=== PATIENT | female | born 1955 | race African-American/Black ===

== ENCOUNTER 2016-11-24 10:05 | Emergency (ER) | payer OTHER ==
[2016-11-24] MEDS ORDERED: ZOFRAN IV ONE (10:25)
--- NOTE | 2016-11-24 10:31 | PROVIDER DOCUMENTATION ---
HPI-General Adult - General Chief Complaint: Dizziness Stated Complaint: DIZZY /LEG PAIN Time Seen by Provider: 11/24/16 10:14 Source: patient Allergies/Adverse Reactions: Patient Allergies Allergy/AdvReac Type Severity Reaction Status Date / Time ciprofloxacin [From Cipro] Allergy Intermediate speech Verified 11/24/16 11:12 problem ciprofloxacin HCl * Allergy Intermediate speech Verified 11/24/16 11:12 [From Cipro] problem gabapentin Allergy Intermediate speech Verified 11/24/16 11:12 problem cephalexin monohydrate * AdvReac Unknown Verified 11/24/16 11:12 [From Keflex] escitalopram oxalate * AdvReac Unknown Verified 11/24/16 11:12 [From Lexapro] Penicillins AdvReac SWELLING Verified 11/24/16 11:12 promethazine HCl * AdvReac Unknown Verified 11/24/16 11:12 [From Phenergan] Home Medications: Divalproex Sodium 250 tab PO HS 05/31/14 Multivitamin [Multivitamins] 1 tab PO QAM 05/31/14 Labetalol HCl 300 mg PO BID 04/16/15 Mirtazapine [Remeron] 30 mg PO QHS 04/16/15 Insulin Aspart [Novolog Flexpen] 2 - 4 unit SQ DIRECTED 04/21/15 PRAVAstatin [Pravachol] 40 mg PO QHS 12/28/15 Calcium Acetate 667 mg PO DAILY 06/04/16 Dicyclomine [Bentyl] 10 mg PO AC + HS 06/04/16 Amitriptyline [Elavil] 50 mg PO HS 07/14/16 Divalproex [Depakote] 125 mg PO QHS 07/14/16 Furosemide [Lasix] 20 mg PO DAILY 07/14/16 Hydrocodone Bit/Acetaminophen [Hydrocodon-Acetaminoph 7.5-325] 1 each PO Q12H PRN PRN 07/14/16 Levetiracetam [Keppra] 500 mg PO TID 07/14/16 Metoprolol [Lopressor] 25 mg PO DAILY 07/14/16 - History of Present Illness -Gen Adult Nature of Presenting Problems: 61 yo BF with DM, chronic pain on dialysis has severe leg pain last night after 3 hours of dialysis. She felt dizzy and nauseated. This morning the room was spinning around and she was also nauseated. She took a zofran and her vomiting stopped but dizziness continues. Denies fall or trauma Location of Pain/Injury: reports: lower body Pain Radiation: reports: no radiation Quality of Pain: reports: aching, burning Severity: reports: moderate, severe Onset/Duration: reports: last night Timing: reports: improving Context/Activities at Onset: reports: none Modifying Factors: improves with: nothing Associated Symptoms: reports: nausea, vomiting Similar Symptoms Previously?: No Recently seen or treated by another doctor?: Yes (dialysis yesterday) - Diabetes Related Context Context: denies: low blood sugar, high blood sugar - Sickle Cell Pain Related Context Is this pain typical of prior episodes of crisis?: No Review of Systems - Adult - REVIEW OF SYSTEMS - ADULT Constitutional: reports: no symptoms reported Eyes: reports: no symptoms reported. denies: decreased vision, blurred vision, double vision Ears, Nose, Mouth & Throat: reports: no symptoms reported. denies: ear discharge, ear pain, hearing loss, tinnitus, sinus problem Cardiovascular: reports: no symptoms reported Respiratory: reports: no symptoms reported Gastrointestinal: reports: see HPI, nausea. denies: vomiting Genitourinary: reports: no symptoms reported Musculoskeletal: reports: no symptoms reported Integumentary: reports: no symptoms reported Neurological: reports: dizziness/vertigo, loss of balance. denies: numbness, slurred speech Psychiatric: reports: no symptoms reported Endocrine: reports: no symptoms reported Hematologic/Lymphatic: reports: no symptoms reported Allergic/Immunologic: reports: no symptoms reported All Other Systems: Reviewed and Negative Past History - Adult - PAST MEDICAL HISTORY-ADULT Review of Records: reports: Old Records Reviewed, Nursing Assessment Review, Medications Reviewed, Social history reviewed & non-contributory. Major Childhood Illnesses: reports: denies history Cardiovascular: reports: HTN Respiratory: reports: sleep apnea Gastrointestinal: reports: GERD, ulcer Obstetrical/Gynecological: reports: denies history Genitourinary: reports: dialysis (M, W, Sat), ESRD Musculoskeletal: reports: denies history Neurological: reports: CVA (left sided deficit), Seizures/Epilepsy, TIA Psychiatric: reports: denies history Endocrine/Immune: reports: anemia, Diabetes Other Conditions: reports: denies history - PRIOR SURGERIES/PROCEDURES Surgical/Procedure History: reports: hysterectomy, back/neck, other (left hip replacement) - PRIOR HOSPITALIZATIONS Prior Hospitalizations: reports: none - IMMUNIZATION STATUS Childhood Immunizations: UTD, See Nurse Assessment Flu Vaccine: See Nurse Assessment - FAMILY HISTORY Family History: reviewed, not pertinent - SOCIAL HISTORY Substance Use: opiates Alcohol Use Frequency: never Living Situation: family Physical Exam-General - PHYSICAL EXAM-ADULT Initial Vital Signs Reviewed: Yes - CONSTITUTIONAL General Appearance: mild distress - EYES Eyes: PERRL/EOMI, pink conjunctivae - HEAD, EARS, NOSE, MOUTH & THROAT HENMT: normocephalic/atraumatic, moist mucous membranes, dental decay, other ( left cerumen impaction) - NECK Neck: non-tender, full range of motion, supple - RESPIRATORY Respiratory: lungs clear, normal breath sounds - CARDIOVASCULAR Cardiovascular: normal peripheral pulses, regular rate, rhythm. negative: tachycardia - GASTROINTESTINAL (ABDOMEN) Abdominal Exam: normal bowel sounds, tenderness (mild diffuse, no rebound) - MUSCULOSKELETAL Back Exam: no CVA tenderness Extremity: no pedal edema. negative: pulse deficit - SKIN Integumentary: normal color, normal turgor - NEUROLOGIC Neurologic: grossly normal, no motor/sensory deficits, other (questionable nystagmus, gaze looks slightly disconjugate but maybe mild baseline exotropia) Departure - Departure Time of Disposition Order: 13:50 DIAGNOSIS: Dizziness, ESRD (end stage renal disease) on dialysis, Diabetes Leg pain Qualifiers: Laterality: bilateral Qualified Code(s): M79.604 - Pain in right leg; M79.605 - Pain in left leg Disposition: HOME 01 Certified Medical Emergency: Urgent Condition: Good Additional Instructions: follow up with dr. guerin for better look into leg pain Prescriptions: Hydrocodone/Acetaminophen [[place] 10-325 Tablet] 1 each PO Q4-6H PRN PRN #10 tablet PRN Reason: Pain Referrals: Sean Guerin MD [Primary Care Provider] -
[2016-11-24] MEDS ORDERED: CATAPRES PO ONE (10:33)
[2016-11-24 10:49] LABS: MANUAL DIFF NEEDED? NO
[2016-11-24 10:51] LABS: BASO% 0.2 % (0.0-0.8); EOS# 0.05 X1000 (0.0-0.7); EOS% 0.8 % (0.0-10.0); HEMATOCRIT 32.1 % (37.0-47.0); HEMOGLOBIN 10.2 g/dL (12.0-16.0); LYMPH# 1.43 X1000 (1.2-3.4); LYMPH% 22.5 % (20.5-51.1); MCH 30.8 PG (27-31); MCHC 31.8 g/dL (33-37); MONO% 6.3 % (1.7-9.3); MPV 10.4 FL (7.4-10.4); NEUT% 70.2 % (42.2-75.2); PLT 205 X1000 (130-400); RBC 3.31 XMIL (4.2-5.4)
[2016-11-24 11:05] LABS: ALBUMIN 4.3 g/dL (3.5-5.0); CALCIUM 10.5 mg/dL (8.8-10.2); POTASSIUM 4.3 mmol/L (3.5-5.1); TOTAL BILIRUBIN 0.43 mg/dL (0.20-1.00); TOTAL PROTEIN 7.3 g/dL (6.3-8.3)
[2016-11-24] MEDS ORDERED: MORPHINE IV ONE (11:25)
--- NOTE | 2016-11-24 11:51 | Diag Imaging Result Document ---
PROCEDURE NAME: HEAD W/O CONTRAST - 11/24/2016 CT HEAD WITHOUT CONTRAST: COMPARISON: 10/01/2016. FINDINGS: There is no discrete intracranial mass, mass effect, or intracranial hemorrhage. There is no evidence of hydrocephalus. There is no evidence of acute infarct given the limited sensitivity of CT versus MRI. The surrounding soft tissues and bony structures are essentially unremarkable. IMPRESSION: No evidence of acute intracranial pathology.
[2016-11-24 14:16] VITALS: BP 189/86
== END 2016-11-24 14:15 | disposition home or self-care (01) ==
LOC: ED 10:05
DX: R42 Dizziness and giddiness (principal); I12.0 Hypertensive chronic kidney disease with stage 5 chronic kidney disease or end stage renal disease; N18.6 End stage renal disease; E11.9 Type 2 diabetes mellitus without complications; M79.605 Pain in left leg; M79.604 Pain in right leg; R11.2 Nausea with vomiting, unspecified; K02.9 Dental caries, unspecified; R10.819 Abdominal tenderness, unspecified site; R56.9 Unspecified convulsions; Z79.4 Long term (current) use of insulin; Z79.899 Other long term (current) drug therapy; Z86.73 Personal history of transient ischemic attack (TIA), and cerebral infarction without residual deficits; Z99.2 Dependence on renal dialysis; Z96.642 Presence of left artificial hip joint; H61.22 Impacted cerumen, left ear
CPT/HCPCS: 70450; 80053; 85025; 96374; 96375; J2270; J2405

== ENCOUNTER 2017-01-16 18:42 | Emergency (ER) | payer OTHER ==
[2017-01-16 19:57] LABS: MANUAL DIFF NEEDED? NO
[2017-01-16 20:00] LABS: BASO% 0.1 % (0.0-0.8); EOS# 0.08 X1000 (0.0-0.7); EOS% 1.1 % (0.0-10.0); HEMATOCRIT 33.2 % (37.0-47.0); HEMOGLOBIN 10.6 g/dL (12.0-16.0); LYMPH% 19.9 % (20.5-51.1); MCH 30.5 PG (27-31); MCHC 31.9 g/dL (33-37); MCV 95.7 FL (81-99); MONO# 0.63 X1000 (0.11-0.59); MPV 10.2 FL (7.4-10.4); NEUT% 69.9 % (42.2-75.2); PLT 224 X1000 (130-400); RBC 3.47 XMIL (4.2-5.4)
[2017-01-16] MEDS ORDERED: COMPAZINE IV ONE (20:23)
[2017-01-16] MEDS ORDERED: MORPHINE IV ONE (20:24)
[2017-01-16 20:29] LABS: ALBUMIN 3.9 g/dL (3.5-5.0); CALCIUM 9.7 mg/dL (8.8-10.2); POTASSIUM 3.3 mmol/L (3.5-5.1); TOTAL BILIRUBIN 0.27 mg/dL (0.20-1.00)
--- NOTE | 2017-01-16 21:08 | PROVIDER DOCUMENTATION ---
HPI-Headache - General Source: patient - History of Present Illness-Headache Headache Location: reports: occipital Quality of Pain: reports: aching Severity: reports: mild Onset/Duration: reports: other (2 weeks) Timing: reports: still present Headache Exacerbated by:: reports: nothing Modifying Factors: improves with: nothing Associated Symptoms: reports: headache, nausea Similar Symptoms Previously?: No Recently seen or treated by another doctor?: No <Jeni Dalton - Last Filed: 01/16/17 21:36> <Osiel French - Last Filed: 01/16/17 21:37> - General Chief Complaint: General Adult Stated Complaint: BACK/ MCQUEEN, LOW BP Time Seen by Provider: 01/16/17 19:36 Allergies/Adverse Reactions: Patient Allergies Allergy/AdvReac Type Severity Reaction Status Date / Time cephalexin monohydrate * Allergy Unknown Unknown Verified 01/16/17 20:16 [From Keflex] escitalopram oxalate * Allergy Unknown Unknown Verified 01/16/17 20:16 [From Lexapro] ciprofloxacin [From Cipro] AdvReac Intermediate hallucinati Verified 01/16/17 20 :16 ons ciprofloxacin HCl * AdvReac Intermediate hallucinati Verified 01/16/17 20:16 [From Cipro] ons gabapentin AdvReac Intermediate hallucinati Verified 01/16/17 20:16 ons Penicillins AdvReac Intermediate hallucinati Verified 01/16/17 20:16 ons promethazine HCl * AdvReac Intermediate NAUSEA/VOMI Verified 01/16/17 20:16 [From Phenergan] TING Home Medications: Home Medication List Medication Instructions Recorded Confirmed Last Taken Type Divalproex Sodium 250 tab PO HS 05/31/14 11/24/16 11/23/16 History Multivitamin [Multivitamins] 1 tab PO QAM 05/31/14 11/24/16 11/23/16 History Labetalol HCl 300 mg PO BID 04/16/15 11/24/16 11/23/16 History Mirtazapine [Remeron] 30 mg PO QHS 04/16/15 11/24/16 11/23/16 History Insulin Aspart [Novolog Flexpen] 2 - 4 unit SQ DIRECTED 04/21/15 11/24/1605/04 History PRAVAstatin [Pravachol] 40 mg PO QHS 12/28/15 11/24/16 11/23/16 History Calcium Acetate 667 mg PO DAILY 06/04/16 11/24/16 11/23/16 History Dicyclomine [Bentyl] 10 mg PO AC + HS 06/04/16 11/24/16 11/23/16 History Nitroglycerin Sl [Nitroglycerin] 0.4 mg SL Q5M PRN PRN #0 tablet 06/26/1611/23/16 Rx Amitriptyline [Elavil] 50 mg PO HS 07/14/16 11/24/16 11/23/16 History Divalproex [Depakote] 125 mg PO QHS 07/14/16 11/24/16 11/23/16 History Furosemide [Lasix] 20 mg PO DAILY 07/14/16 11/24/16 11/23/16 History Hydrocodone Bit/Acetaminophen 1 each PO Q12H PRN PRN 07/14/16 11/24/16 11/23/16 History [Hydrocodon-Acetaminoph 7.5-325] Levetiracetam [Keppra] 500 mg PO TID 07/14/16 11/24/16 11/23/16 History Metoprolol [Lopressor] 25 mg PO DAILY 07/14/16 11/24/16 11/23/16 History Hydrocodone/Acetaminophen [[place] 1 each PO Q4-6H PRN PRN #10 tablet 11/24/16 Unknown Rx 10-325 Tablet] - History of Present Illness-Headache Nature of Presenting Problem: 61 year old F presents to the ED with a cc of a posterior headache radiating to the frontal region x2 weeks. Pt states that her blood pressure has also been elevated. Pt was started on Losartain and HCTZ. PT states this morning around 0200 systolic pressure was 114. PT states that she was not feeling well. PT states that today while at dialysis her blood pressure was running low with a pressure of 150s systolic. (Jeni Dalton) Review of Systems - Adult - REVIEW OF SYSTEMS - ADULT Constitutional: denies: chills, fever Eyes: reports: no symptoms reported Ears, Nose, Mouth & Throat: reports: no symptoms reported Cardiovascular: denies: chest pain, palpitations Respiratory: denies: cough, shortness of breath Gastrointestinal: reports: nausea. denies: abdominal pain, diarrhea, rectal bleeding Genitourinary: reports: no symptoms reported Musculoskeletal: reports: back pain. denies: neck pain Integumentary: reports: no symptoms reported Neurological: reports: headache/migraines. denies: dizziness/vertigo Psychiatric: reports: no symptoms reported Endocrine: reports: no symptoms reported Hematologic/Lymphatic: reports: no symptoms reported Allergic/Immunologic: reports: no symptoms reported All Other Systems: Reviewed and Negative <Jeni Dalton - Last Filed: 01/16/17 21:36> Past History - Adult - PAST MEDICAL HISTORY-ADULT Review of Records: reports: Nursing Assessment Review, Medications Reviewed Major Childhood Illnesses: reports: denies history Cardiovascular: reports: HTN Respiratory: reports: sleep apnea Gastrointestinal: reports: GERD, ulcer Obstetrical/Gynecological: reports: denies history Genitourinary: reports: dialysis (M, W, FRi), ESRD Musculoskeletal: reports: denies history Neurological: reports: CVA (left sided deficit), Seizures/Epilepsy, TIA Psychiatric: reports: denies history Endocrine/Immune: reports: anemia, Diabetes Other Conditions: reports: denies history - PRIOR SURGERIES/PROCEDURES Surgical/Procedure History: reports: hysterectomy, back/neck, other (left hip replacement) - PRIOR HOSPITALIZATIONS Prior Hospitalizations: reports: none - IMMUNIZATION STATUS Childhood Immunizations: UTD, See Nurse Assessment Flu Vaccine: See Nurse Assessment - FAMILY HISTORY Family History: reviewed, not pertinent - SOCIAL HISTORY Smoking: non-smoker Substance Use: none/never Alcohol Use Frequency: never <Jeni Dalton - Last Filed: 01/16/17 21:36> Physical Exam- Neurological - Physical Exam-Neuro Initial Vital Signs Reviewed: Yes General Appearance: appears well, alert, no apparent distress Respiratory: chest non-tender, lungs clear, normal breath sounds Cardiovascular: normal peripheral pulses, regular rate, rhythm, no edema Abdominal Exam: normal bowel sounds, non tender, soft Extremity: normal inspection analytical engineer Exam: normal hearing, normal speech, PERRL Neurologic: analytical engineer II-XII nml as tested, no motor/sensory deficits Integumentary: normal color, normal turgor, warm/dry Psych/Mental Status: normal mood/affect, normal thought content, normal thought process, oriented x 3 <Jeni Dalton - Last Filed: 01/16/17 21:36> Progress - REASSESSMENT Reassessment #1 Time Reassessed: 21:33 (PT feeling much better after pain medications. PT states also that she just recently developed symptoms of a vaginal yeast infection. PT states that she developes these after taking antibiotics in which she just finished a round of antibiotics. Pts yeast infection will be treated. Pt will be d/c home. ) <Jeni Dalton - Last Filed: 01/16/17 21:36> <Osiel French - Last Filed: 01/16/17 21:37> - PLAN OF CARE/RESULTS Progress/Plan/Lab Results: plan of care: imaging, labs, medications Orders Category Date Time Status HEAD W/O CONTRAST [CT] Stat Exams 01/16/17 20:24 Taken CBC WITH ELECTRONIC DIFF [HEME] Stat Lab 01/16/17 19:50 Completed CMP [COMPREHENSIVE METABOLIC PANEL] [CHEM] Stat Lab 01/16/17 19:50 Completed Fluconazole [Diflucan] Med 01/16/17 21:33 Discontinued 150 mg PO NOW ONE Morphine Med 01/16/17 20:24 Discontinued 4 mg IV NOW ONE Prochlorperazine [Compazine] Med 01/16/17 20:23 Discontinued 10 mg IV NOW ONE Laboratory Tests 01/16/17 01/16/17 19:50 19:50 WBC 7.03 RBC 3.47 L Hgb 10.6 L Hct 33.2 L MCV 95.7 MCH 30.5 MCHC 31.9 L RDW Std Deviation 14.4 Plt Count 224 MPV 10.2 Immature Gran % (Auto) 0.0 Neut % (Auto) 69.9 Lymph % (Auto) 19.9 L [place] % (Auto) 9.0 Eos % (Auto) 1.1 Baso % (Auto) 0.1 Immature Gran # (Auto) 0.00 Neut # (Auto) 4.91 Lymph # (Auto) 1.40 [place] # (Auto) 0.63 H Eos # (Auto) 0.08 Baso # (Auto) 0.01 Sodium 137 Potassium 3.3 L Chloride 97 L Carbon Dioxide 25 Anion Gap 15 BUN 18 Creatinine 4.6 H Estimated GFR/1.73 m2 12 BUN/Creatinine Ratio 4 Glucose 178 H Calculated Osmolality 280 Calcium 9.7 Total Bilirubin 0.27 AST 11 ALT 11 Alkaline Phosphatase 135 H Total Protein 7.0 Albumin 3.9 Globulin 3.1 Albumin/Globulin Ratio 1.3 Vital Signs - 24 hr 01/16/17 18:58 Temperature 98.7 F Pulse Rate 82 Respiratory 16 Rate Blood Pressure 161/67 O2 Sat by Pulse 100 Oximetry Pt given results and will be d/c home w/o rx to follow up with PCP. Pt verbally understood instructions. PT remained clinically stable throughout the course of the ED stay and will return if symptoms worsen. (Jeni Dalton) Departure <Jeni Dalton - Last Filed: 01/16/17 21:36> - Departure Time of Disposition Order: 21:36 Certified Medical Emergency: Emergent <Osiel French - Last Filed: 01/16/17 21:37> - Departure DIAGNOSIS: Vaginal yeast infection Headache Qualifiers: Headache type: unspecified Headache chronicity pattern: acute headache Intractability: not intractable Qualified Code(s): R51 - Headache Chronic lower back pain Qualifiers: Back pain laterality: midline Sciatica presence: without sciatica Qualified Code(s): M54.5 - Low back pain; G89.29 - Other chronic pain Disposition: HOME 01 Condition: Good Additional Instructions: ED Follow Up Instructions: You have been treated by a care provider in the Emergency Department. These instructions are being provided to you so you can have an understanding of how to care for yourself upon discharge. Upon discharge from the Emergency Department, you are responsible for making arrangements for follow-up care by a physician of your choice. Take all prescribed medications as directed. Return to the Emergency Department immediately for any new or worsening symptoms. You may call the Physician Referral phone number at [phone] to obtain a list of Physicians who are taking new patients. Referrals: Sean Guerin MD [Primary Care Provider] - Instructions: Dehydration, Adult, [id number], Migraine Headache, [id number] Attestation - Scribe Verification/Attestation Scribe:: Jeni Dalton Acting as Scribe for:: Osiel French Scribe documention review:: This chart was documented by a scribe and accurately reflects the service the provider performed and the decisions made by the provider. <Jeni Dalton - Last Filed: 01/16/17 21:36> Physician Attestation - Physician Attestation I, the provider, attest to the following statement:: Osiel French Physician documentation Attestation:: This documentation recorded by the scribe accurately reflects the service I personally performed and the decisions made by me. <Jeni Dalton - Last Filed: 01/16/17 21:36> HPI-Musculoskeletal Pain/Inj - GENERAL Source: patient - HX OF PRESENT ILLNESS-MUSKULOSKELTAL Quality of Pain: reports: aching Severity in ED: mild Onset/Duration: 1 week ago Timing: still present Modifying Factors: improves with: nothing Any recent injury?: No Similar Symptoms Previously?: No Recently seen or treated by another doctor?: No - BACK & NECK PAIN/INJURY Back/Neck Pain Location: reports: lumbar spine Associated Symptoms: reports: lower back pain History of Chronic Neck or Back Pain?: Yes <Jeni Dalton - Last Filed: 01/16/17 21:36> <Osiel French - Last Filed: 01/16/17 21:37> - GENERAL Chief Complaint: General Adult Stated Complaint: BACK/ MCQUEEN, LOW BP Time Seen by Provider: 01/16/17 19:36 - HX OF PRESENT ILLNESS-MUSKULOSKELTAL Nature of Presenting Problem: PT also c/o lower back pain x1 week. Pt states that she has a hx of chronic lower back pain but states it was worsened due to having a test ran last week where she had to lay on her back. PT states that her regular pain medications are not helping. (Jeni Dalton)
[2017-01-16] MEDS ORDERED: DIFLUCAN PO ONE (21:33)
[2017-01-16 21:50] VITALS: BP 166/76
--- NOTE | 2017-01-17 06:47 | Diag Imaging Result Document ---
PROCEDURE NAME: HEAD W/O CONTRAST - 01/16/2017 CT BRAIN WITHOUT CONTRAST: TECHNIQUE: Dose-reduction protocol. COMPARISON: Compared to 11/24/2016. FINDINGS: No parenchymal hemorrhage. No epidural or subdural hematoma. No subarachnoid hemorrhage. No mass identified on this noncontrasted exam. There are only mild microvascular ischemic changes. No hydrocephalus. No sinus opacification. IMPRESSION: 1. No hemorrhage. 2. Minimal microvascular ischemic changes similar to the prior study. A preliminary report was given at 8:53 p.m.
== END 2017-01-16 21:49 | disposition home or self-care (01) ==
LOC: ED 18:42
DX: R51 Headache (principal); B37.3 Candidiasis of vulva and vagina; G89.29 Other chronic pain; M54.5 Low back pain; R11.0 Nausea; I12.0 Hypertensive chronic kidney disease with stage 5 chronic kidney disease or end stage renal disease; N18.6 End stage renal disease; Z99.2 Dependence on renal dialysis; Z79.899 Other long term (current) drug therapy; R56.9 Unspecified convulsions; E11.9 Type 2 diabetes mellitus without complications; I69.398 Other sequelae of cerebral infarction; Z79.4 Long term (current) use of insulin; Z96.642 Presence of left artificial hip joint
CPT/HCPCS: 70450; 80053; 85025; J0780; J2270

== ENCOUNTER 2017-08-06 10:56 | Observation (INO) ==
--- NOTE | 2017-07-30 11:04 | EKG Report ---
Test Performed on : 07/30/2017 10:47:02 AM Test Reason : PAT Blood Pressure : / mmHG Vent. Rate : 061 BPM Atrial Rate : 061 BPM P-R Int : 186 ms QRS Dur : 106 ms QT Int : 468 ms P-R-T Axes : 056 055 049 degrees QTc Int : 471 ms Normal sinus rhythm. Possible Left atrial enlargement Left ventricular hypertrophy Abnormal ECG When compared with ECG of 30-JUN-2017 20:28, No significant change was found Confirmed by Bret Dejesus MD ([id number]) on 07/30/2017 7:04:17 PM
[2017-07-30 11:24] LABS: CALCIUM 10.2 mg/dL (8.8-10.2); POTASSIUM 4.4 mmol/L (3.5-5.1)
[2017-08-06] MEDS ORDERED: 1/2 NS 500 ML ONE (11:14)
[2017-08-06] MEDS ORDERED: XYLOCAINE-MPF 2% ONE (12:16)
[2017-08-06] MEDS ORDERED: VERSED ONE (12:16)
[2017-08-06] MEDS ORDERED: ZEMURON ONE ×2 (12:16→12:17)
[2017-08-06] MEDS ORDERED: DIPRIVAN 1% ONE (12:17)
[2017-08-06] MEDS ORDERED: QUELICIN (DOSE) ONE (12:17)
[2017-08-06] MEDS ORDERED: FENTANYL ONE (12:17)
[2017-08-06] MEDS ORDERED: SENSORCAINE 0.5%-EPI 1:200,000 ONE (12:24)
[2017-08-06 12:48] LABS: CALCIUM 9.9 mg/dL (8.8-10.2)
[2017-08-06] MEDS ORDERED: ZOFRAN ONE (13:04)
[2017-08-06] MEDS ORDERED: DECADRON ONE ×2 (13:04→14:08)
[2017-08-06] MEDS ORDERED: APRESOLINE ONE ×2 (13:05→14:35)
[2017-08-06] MEDS ORDERED: NEOSTIGMINE ONE (14:05)
[2017-08-06] MEDS ORDERED: ROBINUL ONE (14:06)
[2017-08-06] MEDS: DILAUDID ONE ×3 (15:01→15:15)
[2017-08-06] MEDS ORDERED: BUPRENEX IV PRN (16:03)
[2017-08-06] MEDS ORDERED: SEVELAMER CARBONATE 800 MG PO PRN (16:03)
[2017-08-06] MEDS ORDERED: ZOFRAN IV PRN (16:03)
[2017-08-06] MEDS ORDERED: CATAPRES PO PRN (16:03)
--- NOTE | 2017-08-06 16:10 | OPERATIVE NOTE ---
PROCEDURE DATE: 08/06/2017 PROCEDURE: Parathyroidectomy (3 gland resection, right inferior, right superior, left superior). SURGEON: Tee Reynaga MD. HYDRAULIC SPECIALIST: Jayden Sarabia RN. PREOPERATIVE DIAGNOSIS: 1. Secondary hyperparathyroidism. 2. End-stage renal disease. POSTOPERATIVE DIAGNOSIS: 1. Secondary hyperparathyroidism. 2. End-stage renal disease. INDICATIONS: This lady had a parathyroid hormone level in the 1300 range. This was not able to be controlled medically. FINDINGS: The right inferior gland was the largest gland, measuring 2 x 2 x 1 cm. The 2 superior glands were mildly enlarged but not as big as the right inferior gland. The left inferior gland probably was normal appearing, so I did not disturb the left inferior gland. DESCRIPTION OF PROCEDURE: Satisfactory general endotracheal anesthesia achieved, the neck was gently extended. The anterior neck was prepped and draped in a sterile fashion. We marked the midline of the sternal notch and then 5 cm on each side a vertical pina was made. We then used 2- 0 silk to lay across the skin to make an imprint about the level of the lowest skin line. We then marked the lowest skin line and used 0.5 Marcaine with epinephrine for local anesthesia. Then I made a collar incision. We carried our incision through the platysma. Throughout the extent of the incision, we then raised the subplatysmal plane superiorly to the sternal notch. Also a subplatysmal plane inferiorly to the sternal notch. Gelpi retractors were placed on each side. We incised the cervical fascia in the midline. Some clips were noted on the right consistent with a previous cervical disk surgery. There was a prominent thyroid nodule at the isthmus. We dissected the strap muscles off of it. In fact, we amputated the thyroid nodule. We looked on the right side first, we retracted the strap muscles. We then dissected beside the right thyroid gland. We identified a rather large gland in the right inferior position 1st and we identified it. We then identified the right superior gland which appeared to be somewhat enlarged, but not as large as the right inferior gland. The nerve was identified and protected from harm. Before resecting, we then went to the left side and again we dissected the strap muscles off the left thyroid lobe. We then identified what I thought was possibly the right inferior gland even though it was not very large, and then what we thought was the left superior gland which was mildly enlarged. I went back to the right side then and removed the right inferior gland and it was large measuring 2 cm x 2 cm x 1 cm. We then removed the right superior gland which certainly was not as large, but was larger than normal. I then turned our attention to the left-side again, and we removed the left superior gland, again taking care not to injure the recurrent nerve. All 3 of these glands were sent for frozen section. I looked and I did not see any other abnormal glands in the left inferior position and what I thought was the inferior hyperparathyroid appeared normal, and so I decided to simply save it and not violate it whatsoever. Hemostasis was satisfactory. We placed a Sanju drain into the wound, brought it out inferiorly to the right where a previous drain had been sewn. We then closed the cervical fascia in midline with 3-0 Polysorb. We closed the platysma with 3-0 Polysorb as well. The frozen section came back as all 3 glands that we had sent were parathyroid hyperplastic glands. We then closed the platysma with 3-0 Polysorb, closed the skin with a 4-0 Polysorb subcuticular stitch. 2-0 silk was used to secure the drain to the skin level. Telfa and a sterile OpSite was placed on the neck incision. She tolerated it well, was sent to the recovery room in satisfactory condition. cc: MD James Atwood MD
[2017-08-06] MEDS ORDERED: INSULIN PEN NEEDLES ONE (16:34)
[2017-08-06] MEDS ORDERED: BENADRYL IV ONE (17:42)
[2017-08-06] MEDS: TRANDATE PO SCH ×2 (19:15→20:31)
[2017-08-06] MEDS ORDERED: BENADRYL IV PRN (20:36)
[2017-08-06] MEDS: NORCO-10 PO PRN (22:14)
[2017-08-06] MEDS: PERIDEX MT SCH (22:15)
[2017-08-06] MEDS: PRAVACHOL PO SCH (22:16)
[2017-08-06] MEDS: BENTYL PO SCH (22:16)
[2017-08-06] MEDS: LEVEMIR SUBQ SCH (22:17)
[2017-08-07] MEDS: NORCO-10 PO PRN ×3 (02:30→13:54)
[2017-08-07 06:20] LABS: POTASSIUM 4.2 mmol/L (3.5-5.1)
[2017-08-07] MEDS ORDERED: HEPARIN IV PRN (07:16)
[2017-08-07] MEDS ORDERED: TIGHT: 0.2 ML/HR MISC PRN (07:16)
[2017-08-07] MEDS ORDERED: NS 2,000 ML MISC PRN (07:16)
[2017-08-07 07:23] LABS: MANUAL DIFF NEEDED? NO
[2017-08-07 07:25] LABS: BASO% 0.2 % (0.0-0.8); EOS# 0.01 X1000 (0.0-0.7); EOS% 0.2 % (0.0-10.0); HEMATOCRIT 30.3 % (37.0-47.0); HEMOGLOBIN 9.9 g/dL (12.0-16.0); LYMPH# 1.23 X1000 (1.2-3.4); MCH 31.3 PG (27-31); MCHC 32.7 g/dL (33-37); MCV 95.9 FL (81-99); MONO# 0.79 X1000 (0.11-0.59); MONO% 12.8 % (1.7-9.3); MPV 11.1 FL (7.4-10.4); NEUT% 66.8 % (42.2-75.2); PLT 173 X1000 (130-400); RBC 3.16 XMIL (4.2-5.4)
[2017-08-07] MEDS ORDERED: HEPARIN ONE (08:10)
[2017-08-07] MEDS ORDERED: NS 2,000 ML ONE (08:10)
[2017-08-07] MEDS: HYZAAR 50/12.5 MG PO SCH (08:25)
[2017-08-07] MEDS: TRANDATE PO SCH ×2 (08:25→21:26)
[2017-08-07] MEDS: KEPPRA PO SCH (08:26)
[2017-08-07] MEDS: LASIX PO SCH (08:26)
[2017-08-07] MEDS: PERIDEX MT SCH ×2 (08:27→21:27)
[2017-08-07] MEDS: CATAPRES PO PRN (08:47)
--- NOTE | 2017-08-07 15:19 | CONSULTATION ---
DATE OF CONSULTATION: 08/07/2017 REASON FOR ADMISSION: Partial parathyroidectomy. REASON FOR CONSULT: Assistance with end-stage renal disease and medical management. HISTORY OF PRESENT ILLNESS: Ms. Oliva is a 62-year-old, female , who is known to our outpatient services for hemodialysis at [facility]. Patient has had an elevated PTH, unmanageable with routine medications. She has been referred to Dr. Reynaga. It was felt that patient needed a partial thyroidectomy. She had this completed yesterday with 3 nodes removed according to his postop note. She denies any chest pain. No increased work of breathing. No nausea, vomiting, no diarrhea. No recent falls. No complaints of fever or chills. PAST MEDICAL HISTORY: End-stage renal disease with hemodialysis on Saturday, Saturday, Saturday at the [facility]. She has recently had breast surgery biopsy of the left and a left breast stereotactic biopsy in March 2017. Patient has AV fistula to the right forearm, previous history of tunnel catheter. She has a history of seizure activity. She has anemia secondary to chronic disease, osteodystrophy secondary to chronic disease. Ulcer disease. Gastroesophageal reflux, hypertension, hypercholesterolemia, arthritis. She has had a history of a CVA, diabetes mellitus type 2, asthma. Bladder problems. She also has fibrocystic disease of breast. PREVIOUS SURGICAL HISTORY: Total hip replacement bilateral with left most recent spinal fusion of neck. Cataract surgery on right. Breast biopsy previously. Hysterectomy, partial. Non cancerous. FAMILY HISTORY: Mother and brother have arthritis. Mother and brother have diabetes mellitus type 2. Hypertension, mother, brother, sister. Alcohol abuse, is brother. No kidney disease in family. SOCIAL HISTORY: She lives with her family. Never tobacco use. Occasional drinks. Occasional caffeine. No illicit drug use. CURRENT ALLERGIES: Listed as cephalexin, escitalopram oxalate. She is allergic to Cipro, ciprofloxacin, gabapentin, Keflex, Lexapro, penicillins and Phenergan. HOME MEDICATIONS: Have not been reconciled at this time. Patient does take Keppra for seizure activity. She has been on Hyzaar and Lasix. REVIEW OF SYSTEMS: Times 10 with pertinent positives listed above in the HPI. VITAL SIGNS: Temperature 97.6, blood pressure 181/82, heart rate 75, respirations 14. She is on room air. Last recorded saturation 100%. She has had 250 in she has had 35 mL out with estimated blood loss. LABS: Sodium 135, potassium 4.2, chloride 91, CO2 of 25, BUN 49, creatinine 8, glucose 140, anion gap 19, calcium 9, phosphorus 7.1. PTH 1072. Her CBC is currently pending. PHYSICAL EXAMINATION: General: This is a 62-year-old, female. She is currently resting in bed. Head of the bed is elevated. She has a dressing to her midline neck area with some drainage to the right anterior aspect of her dressing with shadow drainage. She appears in no acute distress, though she does appear chronically ill. HEENT: Normocephalic, atraumatic. Conjunctiva is pale. She has ZAC. Mucous membranes are dry. Neck: Stiff. She is able to turn slightly to both left and to right. Some swelling noted. Unable to determine JVD due to surgical swelling. Cardiovascular: She is regular rate and rhythm. She does have a soft systolic murmur. No gallop appreciated. Lungs: Clear to auscultation anteriorly. Equal excursion on room air. Abdomen: Round, soft, nontender. Positive bowel sounds. Extremities: She does have no clubbing or cyanosis. She does have no swelling to the parapubic hip area. Neurological : She is alert and oriented x3. ASSESSMENT AND PLAN: 1. End-stage renal disease. Patient is due for her routine dialysis treatment today. We will plan to place her on a 2K bath. She is to dialyze for 3.5 hours. We will pull patient to her outpatient dry weight. We will hold her heparin today. 2. Electrolytes. These are stable. 3. Acid-base balance. This remains stable. 4. Anemia. Hemoglobin is currently pending. 5. Status post parathyroidectomy, partial. Patient's calcium is 9 with a PTH of 1072. This is followed by Dr. Reynaga. I would to thank you for allowing us to follow with this patient. Dictated by MARY Pina for James Donato MD Patient seen, data reviewed, discussed with Gladys Roach on 08/07/17. I agree with the above assessment and plan of care. cc: MARY Pina MD Robert C. Walker, MD [facility] ISLANDL[facility]
[2017-08-07] MEDS: LEVEMIR SUBQ SCH (21:27)
[2017-08-07] MEDS: BENTYL PO SCH (21:27)
[2017-08-07] MEDS: PRAVACHOL PO SCH (21:27)
[2017-08-08 06:05] LABS: ALBUMIN 4.1 g/dL (3.5-5.0); CALCIUM 7.8 mg/dL (8.8-10.2); POTASSIUM 4.1 mmol/L (3.5-5.1)
[2017-08-08] MEDS: NORCO-10 PO PRN ×2 (06:22→12:09)
[2017-08-08] MEDS ORDERED: LINZESS PO SCH (09:00)
[2017-08-08] MEDS: HYZAAR 50/12.5 MG PO SCH (09:10)
[2017-08-08] MEDS: TRANDATE PO SCH (09:10)
[2017-08-08] MEDS: LASIX PO SCH (09:10)
[2017-08-08] MEDS: KEPPRA PO SCH (09:11)
[2017-08-08] MEDS: PERIDEX MT SCH (09:11)
[2017-08-08] MEDS: CATAPRES PO PRN (09:23)
[2017-08-08] MEDS ORDERED: CALTRATE 600 PO SCH (09:52)
[2017-08-08] MEDS ORDERED: ROCALTROL PO SCH (10:00)
[2017-08-08 11:54] VITALS: BP 179/80
--- NOTE | 2017-08-08 18:42 | PROGRESS NOTE ---
DATE: 08/08/2017 TIME SEEN: 0840. SUBJECTIVE: Ms. Oliva is resting quietly in bed. She states that it is difficult to talk and swallow. Her neck is swollen. She does deny chest pain. No increased work of breathing. OBJECTIVE: Vital signs: Her most recent vital signs, temperature 98.3 degrees , blood pressure 181/79, heart rate 84, respirations are 20. She is on room air. Last recorded saturation 98%. She has had 760 in 1110 out with 1 L on dialysis. General: This is a 62-year- old female. She is resting quietly in bed. She is in no acute distress, though she does state she has difficulty swallowing. HEENT: Normocephalic, atraumatic. Conjunctivae pink. She has ZAC. Mucous membranes are dry. Neck: Stiff. Trachea is midline. Dressing remains intact to midline area secondary to partial thyroidectomy. She has shadow drainage to her dressing. Unable to determine JVD. Cardiovascular: Regular rate and rhythm. She has a soft systolic murmur. Lungs: Clear to auscultation anteriorly. Equal excursion on room air. Abdomen: Round, soft, nontender. Positive bowel sounds. Extremities: She has trace pretibial edema. No clubbing or cyanosis. Neurological: She is alert and oriented x3. LABORATORIES: Sodium 139, potassium 4.1, chloride 95, CO2 28, BUN 30, creatinine 5.9, glucose 107, calcium 7.8, phosphorus 4.6, albumin 4.1, PTH 994, previous hemoglobin 9.9 on the . ASSESSMENT AND PLAN: 1. End-stage renal disease. Patient had her routine dialysis treatment yesterday. No indications for intervention today. We will plan for dialysis in the a.m. if she is here. Otherwise she has been instructed to go to her outpatient dialysis clinic per her prescription in a.m. 2. Electrolytes. Patient has had a drop in her calcium, though it remains stable. PTH is now down to 994. We have had a calcium supplement ordered, along with Rocaltrol. We will check her laboratories on an outpatient basis if discharged. 3. Acid-base balance. This is stable. 4. Anemia. This remains low but stable. 5. Partial parathyroidectomy. This is followed by Dr. Reynaga. Again calcium has dropped to 7.8. We will give her a calcium substitute supplement. PTH has dropped, but remains elevated. We will start her back on Rocaltrol. I would to thank you for allowing us to follow with this patient. Dictated by MARY Pina for James Donato MD Data reviewed, discussed with Gladys Roach on 08/08/17. I agree with the above assessment and plan of care. cc: MARY Pina MD Robert C. Walker, MD [facility]INICLidai
== END 2017-08-08 14:35 | disposition home or self-care (01) ==
LOC: 4N 10:56 → OR 10:56
PROVIDERS: ADMIT Surgery; ATTEND Surgery

== ENCOUNTER 2018-12-25 15:22 | Observation (INO) ==
--- NOTE | 2018-12-25 16:03 | EKG Report ---
Test Performed on : 12/25/2018 3:32:20 PM Test Reason : chest pain Blood Pressure : / mmHG Vent. Rate : 068 BPM Atrial Rate : 068 BPM P-R Int : 190 ms QRS Dur : 106 ms QT Int : 464 ms P-R-T Axes : 066 057 056 degrees QTc Int : 493 ms Normal sinus rhythm. Possible Left atrial enlargement Left ventricular hypertrophy Prolonged QT Abnormal ECG When compared with ECG of 12-OCT-2018 05:49, T wave inversion now evident in Inferior leads T wave amplitude has decreased in Anterior leads Nonspecific T wave abnormality no longer evident in Lateral leads Unconfirmed Result
--- NOTE | 2018-12-25 16:09 | Diag Imaging Result Doc PS360 ---
EXAM: CHEST-2 VIEWS 12/25/2018 HISTORY: chest jpain TECHNIQUE: PA and lateral chest COMMENT: There is cardiomegaly. There is increased interstitial opacity in the lung bases and increased pulmonary vascularity. Compared to 10/12/2018 it is significantly better. IMPRESSION: Mild pulmonary edema. Electronically signed by Panfilo Rowland 12/25/2018 4:07 PM
[2018-12-25] MEDS ORDERED: ASPIRIN PO ONE (16:19)
[2018-12-25] MEDS ORDERED: NITROGLYCERIN TOP ONE (16:20)
[2018-12-25 18:46] LABS: INR 0.88; PROTIME 12.6 Seconds (11.0-16.0)
[2018-12-25 18:47] LABS: PTT 26.6 Seconds (22.3-41.8)
[2018-12-25 19:07] LABS: BASO# 0.01 X1000 (0.0-0.2); BASO% 0.2 % (0.0-0.8); EOS# 0.18 X1000 (0.0-0.7); EOS% 3.8 % (0.0-10.0); HEMOGLOBIN 7.5 g/dL (12.0-16.0); LYMPH# 1.56 X1000 (1.2-3.4); LYMPH% 32.6 % (20.5-51.1); MCHC 31.3 g/dL (33-37); MCV 99.2 FL (81-99); MONO# 0.43 X1000 (0.11-0.59); MPV 10.2 FL (7.4-10.4); NEUT# 2.61 X1000 (1.4-6.5); NEUT% 54.4 % (42.2-75.2); PLT 173 X1000 (130-400); RBC 2.42 XMIL (4.2-5.4); RDW 14.4 % (11.5-14.5); WBC 4.79 X1000 (4.8-10.8)
[2018-12-25 23:35] LABS: ALB/GLOB RATIO 1.7; ALBUMIN 4.1 g/dL (3.5-5.0); CALCIUM 9.1 mg/dL (8.8-10.2); POTASSIUM 4.2 mmol/L (3.5-5.1); TOTAL BILIRUBIN 0.2 mg/dL (0.20-1.00); TOTAL PROTEIN 6.5 g/dL (6.3-8.3)
[2018-12-25 23:38] LABS: CREATININE 7.5 mg/dL (0.5-0.9)
--- NOTE | 2018-12-26 00:04 | HISTORY AND PHYSICAL ---
PRIMARY CARE PHYSICIAN: Dr. Jovany Guerin. CHIEF COMPLAINT: Chest pain. HISTORY OF PRESENTING ILLNESS: A 63-year-old female with a history of end-stage renal disease on renal dialysis Saturday, Saturday, Saturday, diabetes mellitus type 2, hypertension, obstructive sleep apnea. Has been having recurrent chest pain for the past several months. She states that over the past day or so the chest pain has been worsening. She apparently has seen a disintegrator operator who had evaluated her and recommended that patient be admitted for possible heart catheterization. At the time of my examination, patient had denied any headache, visual changes, fever, chills, nausea, vomiting, diarrhea, hemoptysis, melena, but complained of chest pain and shortness of breath. PAST MEDICAL HISTORY: Includes end-stage renal disease on renal dialysis Saturday, Saturday, Saturday, diabetes mellitus type 2, hypertension, hyperlipidemia, obstructive sleep apnea. PAST SURGICAL HISTORY: Hysterectomy, cervical fusion, left hip replacement, breast biopsy. ALLERGIES: Cephalexin, ciprofloxacin and some other medications. CURRENT MEDICATIONS: The list is incomplete, includes the following home medicines: Minoxidil 2.5 mg p.o. daily, losartan HCT 100 mg p.o. daily, Norvasc 10 mg p.o. daily, aspirin 325 mg p.o. daily, clonidine 0.25 mg p.o. b.i.d., Lasix 20 mg p.o. daily, labetalol 300 mg p.o. b.i.d., Levemir 7 units at bedtime, Keppra 500 mg half tab p.o. b.i.d., NovoLog sliding scale, pravastatin 40 mg p.o. daily, Renvela 500 mg 2 tabs b.i.d., Sensipar 30 mg 2 tabs daily. SOCIAL HISTORY: Denies any history of smoking, alcohol or illicit drug use. FAMILY HISTORY: No history of coronary disease. REVIEW OF SYSTEMS: Fourteen point review of systems as listed in HPI. Other systems negative. PHYSICAL EXAMINATION: GENERAL: Cooperative, friendly female. She is resting more comfortably now. VITAL SIGNS: Temperature 98.2 degrees, pulse 69, respiration 18, blood pressure 165/64. HEENT: Atraumatic, normocephalic. Extraocular movements intact. PERRLA. NECK: No masses. CHEST: Bibasilar rales. CARDIOVASCULAR: Regular rate and rhythm. ABDOMEN: Soft, positive bowel sounds. EXTREMITIES: No edema. NEUROLOGIC: She is awake, alert, oriented x3. GENITOURINARY: No bladder distention. SKIN: Warm. LABORATORIES AND STUDIES: WBCs 4.79, hemoglobin 7.5, hematocrit 24.0, platelets 173,000. ASSESSMENT: This is a 63-year-old female with a history of end-stage renal disease on renal dialysis Saturday, Saturday, Saturday, diabetes mellitus type 2, hypertension, hyperlipidemia, who had presented to the emergency department with complaint of chest pain. She apparently had seen a disintegrator operator earlier in the morning who recommended the patient be admitted for possible heart catheterization. 1. Chest pain. 2. End-stage renal disease. 3. Diabetes mellitus type 2. 4. Hypertension. 5. Seizure disorder. PLAN: 1. We will admit patient to medical floor with telemetry. 2. Continue with cardiac workup. Check EKG, serial cardiac enzymes. Have patient continue on aspirin. We will use sublingual nitroglycerin and morphine p.r.n. chest pain. 3. We will consult her disintegrator operator. 4. Consult Nephrology for dialysis. 5. Put patient on glycemic protocol with sliding scale insulin regimen. 6. We will monitor blood pressure closely. 7. Put patient on seizure precautions. 8. Put patient on DVT prophylaxis with heparin and SCDs. 9. We will continue to follow, and reassess and make further recommendation based on patient's clinical course. cc: Guy Busby MD
[2018-12-26] MEDS ORDERED: ATIVAN PO PRN (00:29)
[2018-12-26] MEDS ORDERED: TYLENOL PO PRN (00:29)
[2018-12-26] MEDS ORDERED: ZOFRAN IV PRN (00:29)
[2018-12-26 03:19] LABS: POTASSIUM 3.9 mmol/L (3.5-5.1)
[2018-12-26 03:41] LABS: CREATININE 7.8 mg/dL (0.5-0.9)
[2018-12-26] MEDS: NORCO-7.5 PO PRN ×2 (04:52→16:10)
[2018-12-26] MEDS: HEPARIN SUBQ SCH ×2 (04:52→16:15)
[2018-12-26] MEDS: RENVELA POWDER PACKET PO SCH ×3 (06:17→18:45)
[2018-12-26] MEDS: HUMULIN R SUBQ SCH ×4 (06:24→21:07)
[2018-12-26 07:43] LABS: EOS# 0.15 X1000 (0.0-0.7); EOS% 3.3 % (0.0-10.0); HEMATOCRIT 21.6 % (37.0-47.0); HEMOGLOBIN 6.8 g/dL (12.0-16.0); LYMPH# 1.44 X1000 (1.2-3.4); LYMPH% 31.2 % (20.5-51.1); MCH 31.1 PG (27-31); MCHC 31.5 g/dL (33-37); MCV 98.6 FL (81-99); MONO# 0.45 X1000 (0.11-0.59); MONO% 9.8 % (1.7-9.3); MPV 10.2 FL (7.4-10.4); NEUT# 2.57 X1000 (1.4-6.5); NEUT% 55.7 % (42.2-75.2); PLT 163 X1000 (130-400); RBC 2.19 XMIL (4.2-5.4); RDW 14.2 % (11.5-14.5); WBC 4.61 X1000 (4.8-10.8)
[2018-12-26] MEDS ORDERED: HEPARIN 1000 UNITS/NS 2,000 UNIT/1,000 ML IV.SOLN ONE (08:59)
[2018-12-26] MEDS ORDERED: NITROGLYCERIN ONE (09:02)
[2018-12-26] MEDS ORDERED: NS 2,000 ML MISC PRN (09:05)
[2018-12-26] MEDS ORDERED: HEPARIN IV PRN (09:05)
[2018-12-26] MEDS ORDERED: TIGHT: 0.2 ML/HR FOR DIALYSIS MISC PRN (09:05)
[2018-12-26] MEDS ORDERED: CLAVE TWINSITE 32 IN 11959 ONE (09:33)
[2018-12-26] MEDS ORDERED: NS 500 ML ONE (09:33)
[2018-12-26] MEDS ORDERED: ANESTHESIA PB SET 88 IN 5742 ONE (09:34)
[2018-12-26] MEDS ORDERED: VERSED ONE (09:37)
[2018-12-26] MEDS ORDERED: DILAUDID ONE (09:37)
[2018-12-26 09:44] LABS: URINE SOURCE CLEAN CATCH
--- NOTE | 2018-12-26 09:48 | CARDIOLOGY PROGRESS NOTE ---
DATE: 12/26/2018 SUBJECTIVE: Ms. Oliva was seen in our office yesterday and had diffuse vague complaints of severe fatigue and dizziness. She was sent over to the ER for further evaluation. Currently, she continues to have chest tightness, that has been constant since yesterday. There is no exertional exaggeration with this. OBJECTIVE: Vital signs: She is afebrile. Heart rate is 68, blood pressure 166 /62. Generally: She is in no acute distress. Cardiovascular: She sounds to be in a regular rate and rhythm. She has no murmurs. She has no S3. She has no lower extremity edema. Chest: Sounds clear bilaterally. She has no increased work of breathing. Abdomen: Soft and nontender. PERTINENT DATA: Ms. Oliva had a chest x-ray showing mild pulmonary edema. She had an EKG yesterday demonstrating sinus rhythm. No signs of significant ischemic changes. This was reviewed by me. She had lab data showing a white count of 4.1. Hematocrit is 21.6 platelet count is 163,000. Sodium 141, potassium 3.9, BUN 39, creatinine 7.8. Her troponin has been flatly elevated from 0.207 to 0.228. ProBNP is 15,320. ASSESSMENT: Ms. Oliva is a 63-year-old end-stage renal patient, who presented in our office yesterday with diffuse complaints of fatigue, malaise, as well as some chest tightness. PLAN: We will proceed with cardiac catheterization. I do not believe her current symptoms were likely anginal in nature. I believe, more likely, symptoms are related to her anemia. She needs a transfusion. She needs a cardiac catheterization, as part of her transplant evaluation that has been requested by [facility]. I believe, again, she needs a transfusion. I will discuss this with the hospitalist service, who is taking care of her. We will proceed with cardiac cath today. The risks and benefits have been discussed with the patient. She agrees to proceed. cc: MD CARMELLA Lyn
[2018-12-26 09:56] LABS: BILIRUBIN URINE NEGATIVE (NEGATIVE); BLOOD URINE MODERATE (NEGATIVE); COLOR ORANGE; GLUCOSE URINE NEGATIVE (NEGATIVE); KETONE URINE NEGATIVE (NEGATIVE); LEUKOCYTES URINE LARGE (NEGATIVE); NITRITE URINE NEGATIVE (NEGATIVE); PH URINE 6.5; PROTEIN URINE 300 mg/dL (NEGATIVE); SP GRAVITY URINE 1.014; TURBIDITY URINE TURBID (CLEAR); UR EPITHELIAL CELLS >10 /HPF (<10); URINE BACTERIA 4+ /HPF; URINE WBC TNTC /HPF (<10); UROBILINOGEN URINE NORMAL (NORMAL)
[2018-12-26 10:22] LABS: URINE CASTS GRANULAR PRESENT
--- NOTE | 2018-12-26 10:58 | CARDIAC CATH REPORT ---
PROCEDURE NAME: - INDICATION FOR PROCEDURE: Patient with chest discomfort. History of end-stage renal disease. Mild elevation in troponins. Abnormal nuclear scan. This is part of a renal transplant evaluation. PROCEDURES PERFORMED: 1. Left heart catheterization. 2. Selective coronary angiography. PROCEDURE IN DETAIL: Ms. Oliva was brought to the catheterization laboratory in fasting state. Informed consent was obtained. Prepped in usual fashion. She was anesthetized over the right radial artery after Lev's test proved adequate. A 5-Bruneian sheath was placed via true Seldinger technique. Radial cocktail was administered. Catheters were introduced. Hemodynamic measurements made of the ascending thoracic aorta. Coronary angiography was performed in multiple views using JL3.5, JR4 diagnostic catheters. Left heart catheterization was performed using the JR4. At the conclusion of procedure, all sheaths and catheters removed. TR band was left inflated at 11 mL of air with good capillary refill. Good hemostasis. CONTRAST: 95 mL of IV contrast. COMPLICATIONS: No apparent complications. ESTIMATED BLOOD LOSS: 10-15 mL of blood loss. FINDINGS: 1. The left main is short and large appears normal. 2. Left anterior descending and circumflex vessels originate from the left main. These vessels were difficult to opacify secondary to them being extremely large. In addition, it seems she has a high amount of flow through these vessels given the difficulty in opacification. Angiographically, they appeared normal throughout their course and again, very large vessels. 3. Right coronary artery originates from the right coronary cusp. It appears large and normal. 4. Aortic blood pressure 163/79 with a mean of 113. Left ventricle pressure 162/0 with an LVEDP of 11. ASSESSMENT: Ms. Oliva is a 63-year-old, black female with a history of end-stage renal disease. PLAN: Chest discomfort. She presently is experiencing does not appear to be anginal in nature. She has a significant anemia. She is going from here to dialysis, where she will receive her usual hemodialysis as well as a blood transfusion. When she is stable to go home from a primary team standpoint, she certainly could be discharged from a cardiovascular standpoint. TR band orders were placed on the chart. We will arrange to have the catheterization report faxed to [facility]. cc: Shaw Gaines MD
--- NOTE | 2018-12-26 12:29 | PROGRESS NOTE ---
DATE: 12/26/2018 SUBJECTIVE: The patient reports feeling still short of breath. She is concerned about going home today. She denies any chest pain. OBJECTIVE: Vital Signs: Temperature 97.9 degrees, heart rate 68, respiratory rate 20, blood pressure 166/62, O2 saturation 99% on room air. General examination: This is a chronically ill- appearing, 63-year-old, female lying in bed, in no acute distress. HEENT: Head is normocephalic and atraumatic. Neck: No JVD noted. Cardiovascular: S1, S2 heard. No murmurs, gallops, or rubs. Regular rate and rhythm. Respiratory: There are some bibasilar crackles noted in both pulmonary bases. The patient is not using any accessory muscles or having work of breathing. Abdomen: Soft, a little bit distended, but nontender to palpation. Bowel sounds present. No organomegaly. Extremities: No clubbing, cyanosis, or edema. Peripheral pulses present in both legs. Neurological: The patient is alert and oriented x3. Moves 4 extremities. LABORATORY DATA: Reviewed. Hemoglobin is 6.8, hematocrit 21.6. Troponin has been positive, 0.228. ASSESSMENT AND PLAN: 1. Chest pain in a patient with risk factors. The patient has been seen by Cardiology, Dr. Gaines, and left heart catheterization did not show any gross abnormality. So, from their standpoint, the patient is ready to be discharged. 2. End-stage renal disease, on dialysis. The patient is feeling short of breath. I think she may be a little bit volume-overloaded, but I think with dialysis this condition will correct. The patient was also reporting some sensation of tiredness that can be explained by her anemia of 6.8. I am planning to transfuse 2 units of blood while on dialysis and I think she should be fine. 3. Diabetes mellitus type 2. Will continue with sliding scale insulin and Accu-Chek before meals and also at bedtime. 4. Hypertension. Blood pressure is in the acceptable range. We will continue to monitor this patient. 5. Seizure disorder. Aware. DISPOSITION: I think this sensation of shortness of breath plus the sensation of fatigue will be corrected with transfusion of 2 units of blood plus dialysis, but the patient is very concerned about it and she prefers 1 more day. So, if tomorrow she is feeling okay, I think it will be reasonable to discharge her. It is important to remark that from the cardiac standpoint, the patient is good to go. cc: Pasha Pittman MD
[2018-12-26] MEDS: ASPIRIN PO SCH (16:12)
[2018-12-26] MEDS: KEPPRA PO SCH ×2 (16:13→21:07)
[2018-12-26] MEDS: HYZAAR 50/12.5 MG PO SCH (16:13)
[2018-12-26] MEDS: LASIX PO SCH (16:14)
[2018-12-26] MEDS: NORVASC PO SCH (16:14)
[2018-12-26] MEDS: CATAPRES PO SCH ×2 (16:14→21:07)
[2018-12-26] MEDS: TRANDATE PO SCH ×2 (16:14→21:07)
[2018-12-26] MEDS ORDERED: PRAVACHOL PO SCH (21:00)
--- NOTE | 2018-12-27 00:33 | PROVIDER DOCUMENTATION ---
This chart was entered by Clary Donaldson Scribe, acting as scribe for Heide Bullard MD. HPI-Chest Pain - General Chief Complaint: Chest Pain Stated Complaint: chest pain Time Seen by Provider: 12/25/18 16:02 Source: patient Allergies/Adverse Reactions: Patient Allergies Allergy/AdvReac Type Severity Reaction Status Date / Time cephalexin monohydrate * Allergy Severe HALLUCINATI Verified 06/26/18 11:00 [From Keflex] ONS ciprofloxacin [From Cipro] Allergy Severe NAUSEA/VOMI Verified 06/26/18 11:00 TING ciprofloxacin HCl * Allergy Severe NAUSEA/VOMI Verified 06/26/18 11:00 [From Cipro] TING escitalopram oxalate * Allergy Severe Unknown Verified 06/26/18 11:00 [From Lexapro] gabapentin Allergy Severe hallucinati Verified 06/26/18 11:00 ons omeprazole [From Prilosec] Allergy Severe Unknown Verified 06/26/18 11:00 omeprazole magnesium * Allergy Severe Unknown Verified 06/26/18 11:00 [From Prilosec] Penicillins Allergy Severe hallucinati Verified 06/26/18 11:00 ons pneumococcal vaccine Allergy Unknown Unknown Verified 06/26/18 11:00 promethazine HCl * AdvReac Intermediate NAUSEA/VOMI Verified 06/26/18 11:00 [From Phenergan] TING Home Medications: Home Medication List Medication Instructions Recorded Confirmed Last Taken Type PRAVAstatin [Pravachol] 40 mg PO QHS 12/28/15 12/26/18 03/08/18 History Dicyclomine [Bentyl] 10 mg PO Q6HR 06/04/16 12/26/18 03/08/18 History Furosemide [Lasix] 20 mg PO DAILY 07/14/16 12/25/18 03/08/18 History Clonidine [Catapres] 0.2 mg PO BID 03/11/17 12/25/18 03/08/18 History Losartan/Hydrochlorothiazide 1 each PO DAILY 03/11/17 12/25/18 03/08/18 History [Losartan-Hctz 100-25 mg Tab] Ondansetron HCl [Zofran] 4 mg PO Q4H PRN PRN 03/11/17 12/26/18 03/08/18 History Insulin Aspart [Novolog] 0 unit SQ DIRECTED PRN 03/21/17 12/25/18 03/08/18 History Insulin Detemir [Levemir] 7 unit SUBQ HS 03/21/17 12/25/18 03/08/18 History Sevelamer Carbonate [Renvela] 800 mg PO AC 07/30/17 12/25/18 03/08/18 History Aspirin 325 mg PO DAILY 01/06/18 12/26/18 03/08/18 History Hydrocodone/Acetaminophen [[place] 0.5 tab PO PRN PRN 02/25/18 12/26/18 03/08/18 History 7.5-325 Tablet] Amlodipine [Norvasc] 10 mg PO DAILY #30 tab 02/28/18 12/25/18 03/08/18 Rx Lorazepam [Ativan] 1 mg PO PRN PRN 12/25/18 12/26/18 Unknown History Acetaminophen [Tylenol] 2 tab PO Q8H PRN PRN 12/26/18 12/26/18 Unknown History Albuterol Sulfate [Ventolin Hfa] 2 puff INH Q4H PRN PRN 12/26/18 12/26/18 Unknown History Cholecalciferol (Vitamin D3) 1,000 unit PO DAILY 12/26/18 12/26/18 Unknown History [Vitamin D3] Cinacalcet HCl [Sensipar] 30 mg PO DIRECTED 12/26/18 12/26/18 Unknown History Diclofenac Sodium 1 applic TOP BID 12/26/18 12/26/18 Unknown History Folic Acid/Vit B Complex and C 1 tab PO DAILY 12/26/18 12/26/18 Unknown History [Dialyvite Tablet] Labetalol [Trandate] 300 mg PO BID 12/26/18 12/26/18 Unknown History Levetiracetam 250 mg PO BID 12/26/18 12/26/18 Unknown History Linaclotide [Linzess] 145 mcg PO EVERY OTHER DAY 12/26/18 12/26/18 Unknown History Minoxidil 1 tab PO PRN 12/26/18 12/26/18 Unknown History Ranitidine [Zantac] 150 mg PO BID 12/26/18 12/26/18 Unknown History - History of Present Illness-CP Nature of Presenting Problem: 63 yobf presents to the ed with c/o chest pain, fatigue with sob. pt sts is worse on dialysis days which is M/W/F. pt today was at dr pinto (meter reader ) office and was sent to ed for work up due to chest tightness, fatigue and sob. Location: reports: substernal Chest Pain Radiation: reports: no radiation Quality of Pain: reports: tightness Onset/Duration: other (sts "a while") Timing: still present, intermittent Context/Activities at Onset: reports: other (worse on dialysis days) Modifying Factors: improves with: nothing Associated Symptoms: reports: fatigue, shortness of breath. denies: abdominal pain, back pain, fever/chills, nausea, vomiting Nitro Today/Relief: no nitro taken today Aspirin Treatment Today: unknown Similar Symptoms Previously?: Yes Recently Seen Here or By Another Healthcare Provider: Yes (seen meter reader dr pinto today) Review of Systems - Adult - REVIEW OF SYSTEMS - ADULT Constitutional: reports: see HPI, fatique. denies: chills, fever Eyes: reports: no symptoms reported Ears, Nose, Mouth & Throat: reports: no symptoms reported Cardiovascular: reports: see HPI, chest pain. denies: palpitations, syncope Respiratory: reports: shortness of breath. denies: cough, wheezing Gastrointestinal: reports: no symptoms reported Genitourinary: reports: no symptoms reported Musculoskeletal: reports: no symptoms reported Integumentary: reports: no symptoms reported Neurological: reports: no symptoms reported. denies: dizziness/vertigo, headache/migraines Past History - Adult - PAST MEDICAL HISTORY-ADULT Review of Records: reports: Old Records Reviewed, Nursing Assessment Review, Medications Reviewed, Social history reviewed & non-contributory. Major Childhood Illnesses: reports: denies history Cardiovascular: reports: HTN Respiratory: reports: asthma, sleep apnea Gastrointestinal: reports: GERD, ulcer Obstetrical/Gynecological: reports: denies history Genitourinary: reports: dialysis (M, W, Sat), ESRD Musculoskeletal: reports: denies history Neurological: reports: CVA (left sided deficit), stroke deficits, Seizures/ Epilepsy, TIA Psychiatric: reports: denies history Endocrine/Immune: reports: anemia, Diabetes Other Conditions: reports: denies history - PRIOR SURGERIES/PROCEDURES Surgical/Procedure History: reports: hysterectomy, back/neck, other (left hip replacement) - PRIOR HOSPITALIZATIONS Prior Hospitalizations: reports: none - IMMUNIZATION STATUS Childhood Immunizations: UTD, See Nurse Assessment Flu Vaccine: See Nurse Assessment - FAMILY HISTORY Family History: reviewed, not pertinent - SOCIAL HISTORY Smoking: denies Substance Use: denies Alcohol Use Frequency: never Living Situation: family Physical Exam-General - PHYSICAL EXAM-ADULT Initial Vital Signs Reviewed: Yes - CONSTITUTIONAL General Appearance: alert, no apparent distress, obese - EYES Eyes: PERRL/EOMI, pink conjunctivae - HEAD, EARS, NOSE, MOUTH & THROAT HENMT: moist mucous membranes - NECK Neck: non-tender, full range of motion, supple, normal inspection - RESPIRATORY Respiratory: lungs clear, normal breath sounds, other (c/o sob on exam but speaks in complete sentences) - CARDIOVASCULAR Cardiovascular: normal peripheral pulses, regular rate, rhythm, systolic murmur - CHEST (BREASTS) Chest/Breast: deferred - GASTROINTESTINAL (ABDOMEN) Abdominal Exam: normal bowel sounds, non tender, soft - GENITOURINARY Female Genitalia/Pelvic Exam: deferred Rectal Exam: deferred - MUSCULOSKELETAL Extremity: normal range of motion, non-tender, other (+1 pitting edema B/L LE) - SKIN Integumentary: normal color, normal turgor, warm/dry - NEUROLOGIC Neurologic: grossly normal, no motor/sensory deficits Progress - PLAN OF CARE/RESULTS Progress/Plan/Lab Results: Orders Category Date Time Status Admit - [facility] Routine AdmDCTranf 12/26/18 00:29 Active Cardiac Monitoring DIRECTED Care 12/25/18 15:34 Completed FSBS/Accucheck Result AC + HS Care 12/26/18 00:29 Active Notify MD if DIRECTED Care 12/26/18 00:29 Active Nursing- MD Consult Request ROUTINE Care 12/26/18 00:29 Completed Saline Loc DIRECTED Care 12/26/18 00:29 Active Saline Loc NOW Care 12/25/18 15:34 Completed Vital Signs Order Q 4-HR ASSESS Care 12/26/18 00:29 Active Z-Document. for Tele Applied ORDERED Care 12/26/18 00:29 Active Physician/Provider Consults Routine Cons 12/26/18 00:29 Ordered NPO Diet 12/26/18 00:30 Completed CHEST-2 VIEWS [RAD] Stat Exams 12/25/18 15:34 Completed BASIC METABOLIC PANEL [CHEM] Routine Lab 12/26/18 02:50 Completed CBC WITH ELECTRONIC DIFF [HEME] Routine Lab 12/26/18 06:48 Completed CBC WITH ELECTRONIC DIFF [HEME] Stat Lab 12/25/18 18:13 Completed CK PROFILE [SP CHEM] Q8H Lab 12/26/18 00:58 Completed CK PROFILE [SP CHEM] Q8H Lab 12/26/18 06:48 Completed CK PROFILE [SP CHEM] Q8H Lab 12/26/18 16:24 Completed CK PROFILE [SP CHEM] Stat Lab 12/25/18 23:08 Completed COMPREHENSIVE METABOLIC PANEL [CHEM] Stat Lab 12/25/18 23:08 Completed PRO B-NATRIURETIC PEPTIDE Stat Lab 12/25/18 23:08 Completed PROTIME WITH INR [COAG] Stat Lab 12/25/18 18:13 Completed PTT [COAG] Stat Lab 12/25/18 18:13 Completed TROPONIN T Q8H Lab 12/26/18 00:58 Completed TROPONIN T Q8H Lab 12/26/18 06:48 Completed TROPONIN T Q8H Lab 12/26/18 16:24 Completed TROPONIN T Stat Lab 12/25/18 23:08 Completed Acetaminophen [Tylenol] Med 12/26/18 00:29 Active 650 mg PO Q6H PRN PRN Amlodipine [Norvasc] Med 12/26/18 09:00 Active 10 mg PO DAILY Aspirin Med 12/26/18 09:00 Active 325 mg PO DAILY Aspirin Med 12/25/18 16:19 Discontinued 325 mg PO NOW ONE Clonidine [Catapres] Med 12/26/18 09:00 Active 0.2 mg PO BID Furosemide [Lasix] Med 12/26/18 09:00 Active 20 mg PO DAILY Heparin Med 12/26/18 00:29 Active 5,000 unit SUBQ Q12H Hydrocodone/APAP 7.5 mg/325 mg [[place]-7.5] Med 12/26/18 00:29 Active 1 each PO Q4-6H PRN PRN Insulin Human Regular [Humulin R] Med 12/26/18 07:00 Active See Protocol SUBQ 0700,1100,1600,2100 Labetalol [Trandate] Med 12/26/18 09:00 Active 400 mg PO BID Levetiracetam [Keppra] Med 12/26/18 09:00 Active 500 mg PO BID Lorazepam [Ativan] Med 12/26/18 00:29 Active 1 mg PO HS PRN PRN Losartan/Hctz [Hyzaar 50/12.5 mg] Med 12/26/18 09:00 Active 2 each PO DAILY Nitroglycerin Med 12/25/18 16:20 Discontinued 0.5 inch TOP NOW ONE Omeprazole [Prilosec] Med 12/26/18 07:00 Active 20 mg PO DAILY@0700 Ondansetron [Zofran] Med 12/26/18 00:29 Active 4 mg IV Q4H PRN PRN PRAVAstatin [Pravachol] Med 12/26/18 21:00 Active 80 mg PO QHS Sevelamer [Renvela Powder Packet] Med 12/26/18 07:00 Active 0.8 gm PO AC Oxygen Device Routine Oth 12/26/18 00:29 Completed Telemetry [OM.EQ] Routine Oth 12/26/18 00:29 Active EKG [EKG] Stat Ther 12/25/18 15:34 Draft Transfer/Admit Order [TRANSFER] Routine Transfer 12/25/18 22:18 Completed heart score 5 Result Diagrams: 12/26/18 06:48 12/26/18 02:50 - REASSESSMENT Reassessment #1 Time Reassessed: 17:48 (pt is resting in bed) Status: improving Reassessment #2 Time Reassessed: 21:13 Status: improving (Patient report chest pain improved. agree to withdraw blood. admitted.) - EKG 1 Time of EKG reading by physician:: 15:32 EKG Read and Signed by:: Cali Sommers EKG Interpretation (*Must complete 3 of following elements*): Abnormal Rate: 68 Rhythm: nsr QRS: LVH, other (prolonged QT/possible left atrial enlargement) NE Interval: normal ST Wave: normal - XRAY 1 XRAY: Bilateral XRAY Study: Chest Impression: See EMR Report (EXAM: CHEST-2 VIEWS 12/25/2018 HISTORY: chest jpain TECHNIQUE: PA and lateral chest COMMENT: There is cardiomegaly. There is increased interstitial opacity in the lung bases and increased pulmonary vascularity. Compared to 10/12/2018 it is significantly better. IMPRESSION: Mild pulmonary edema. Electronically signed by Panfilo Rowland 12/25/2018 4:07 PM 12/25/18 1607 Interpreting Physician: Panfilo Rowland MD Dictated Date/Time: 12/25/18 1605 cc: Cali Sommers MD; Sean Guerin MD) - CHANGE OF SHIFT REPORT (ED Provider) Report Given and Care Transferred to:: Dr. Guy Busby Time of Transfer: 21:14 Items Pending: Labs, Other (Accepted.) Departure - Departure Date of Disposition Decision: 12/25/18 Time of Disposition Decision: 21:12 DIAGNOSIS: Chest pain Qualifiers: Chest pain type: unspecified Qualified Code(s): R07.9 - Chest pain, unspecified Pulmonary edema Qualifiers: Chronicity: acute Qualified Code(s): J81.0 - Acute pulmonary edema Anemia Qualifiers: Anemia type: unspecified type Qualified Code(s): D64.9 - Anemia, unspecified Disposition: ADMITTED INPATIENT 09 Certified Medical Emergency: Emergent Condition: Stable - Critical Care Note This patient required my direct & personal management of CC.: No Attestation - Physician/ ARINA Attestation Patient care was provided by Advanced Practice Provider:: No The physician spent face to face time with patient:: Yes Advanced Practice Provider documentation review:: Supervising physician onsite and consulted in the evaluation and care of this patient. The physician did have a face to face encounter with the patient. This chart was documented by the indicated scribe, (Clary Donaldson Scribe) and accurately reflects the services I performed and decisions made by me, Heide Bullard MD, as attested by the provider's signature.
--- NOTE | 2018-12-27 02:15 | NEPHROLOGY CONSULTATION ---
DATE: 12/26/2018 REASON FOR ADMISSION: Planned left heart catheterization. REASON FOR CONSULTATION: CKD, 5D. CONSULTING PHYSICIAN: Dr. Gaines. HISTORY OF PRESENT ILLNESS: This is a 63-year-old female, well-known to our service for end-stage renal disease, on hemodialysis Saturday, Saturday, Saturday at the [facility]. She presented to the hospital today for a planned heart catheterization secondary to chest pain. We have been asked to see her to assist with her dialysis. PAST MEDICAL HISTORY: End-stage renal disease, diabetes, hypertension, hyperlipidemia, obstructive sleep apnea, seizure disorder, hyperphosphatemia, hyperparathyroidism, edema. PAST SURGICAL HISTORY: Hysterectomy, cervical fusion, left hip replacement, breast biopsy, left upper extremity AV fistula. ALLERGIES: Cephalexin, ciprofloxacin. Please see chart for complete list. HOME MEDICATIONS: Please see chart for complete list. SOCIAL HISTORY: Negative. FAMILY HISTORY: None. REVIEW OF SYSTEMS: Pertinent positives noted in the HPI. She has some chest pain, shortness of breath. PHYSICAL EXAMINATION: Vital Signs: Temperature 97.9 degrees, pulse 68, respiratory rate 20, blood pressure 166/62. Intake and output have not been measured. General: This is a middle-aged female, sitting up on the side of the bed, ready to go to the cath laboratory technician. She is seen at 0830. HEENT: Normocephalic, atraumatic. ZAC. Neck: Supple, without JVD. Cardiovascular: Regular rate and rhythm. Pulmonary: Clear bilaterally. Abdomen: Soft, with positive bowel sounds. : Not inspected. Extremities: Trace edema. No clubbing or cyanosis. Integumentary: Skin is warm and dry. AV fistula in left upper extremity noted. Neurologic: Grossly nonfocal. LAB DATA: Sodium 141, potassium 3.9, CO2 25, creatinine 7.8. Hemoglobin 6.8. ASSESSMENT AND PLAN: 1. Chronic kidney disease, 5D. We will plan to dialyze her on her routine dialysis treatment after her heart catheterization. Continue Saturday, Saturday, Saturday schedule. 2. Anemia of chronic disease. Hemoglobin is 6.8. Will transfuse 2 units of packed red blood cells during dialysis. 3. Chest pain. Plan heart catheterization. Followed by Primary and Cardiology. Dictated by MARY Vee for James Donato MD cc: James Donato MD
[2018-12-27] MEDS: HEPARIN SUBQ SCH (06:06)
[2018-12-27] MEDS: PRILOSEC PO SCH ×2 (06:07→06:15)
[2018-12-27] MEDS: HUMULIN R SUBQ SCH (06:08)
[2018-12-27] MEDS: RENVELA POWDER PACKET PO SCH (06:23)
[2018-12-27] MEDS: LASIX PO SCH (10:14)
[2018-12-27] MEDS: CATAPRES PO SCH (10:14)
[2018-12-27] MEDS: KEPPRA PO SCH (10:14)
[2018-12-27] MEDS: ASPIRIN PO SCH (10:14)
[2018-12-27] MEDS: HYZAAR 50/12.5 MG PO SCH (10:14)
[2018-12-27] MEDS: TRANDATE PO SCH (10:15)
[2018-12-27] MEDS: NORVASC PO SCH (10:15)
[2018-12-27 11:05] LABS: HEMATOCRIT 25.9 % (37.0-47.0); HEMOGLOBIN 8.3 g/dL (12.0-16.0)
[2018-12-27 11:39] VITALS: BP 172/70
--- NOTE | 2018-12-28 11:20 | DISCHARGE SUMMARY ---
ADMISSION DATE: 12/25/2018 DISCHARGE DATE: 12/27/2018 DISCHARGE DIAGNOSES: 1. Chest pain, status post left heart catheterization. 2. End-stage renal disease, on hemodialysis. 3. Severe anemia, status post 2 units packed red blood cells. 4. Type 2 diabetes. 5. Hypertension. 6. Seizure disorder. PROCEDURES PERFORMED: 1. Chest x-ray dated 12/25/2018. Impression: Mild pulmonary edema. 2. Left heart catheterization with selective coronary angiography. Findings: A. The left main is short and large, appears normal. B. The left anterior descending and circumflex vessels originate from the left main. The vessels were difficult to opacify secondary to them being extremely large. In addition, it seems she has a high amount of flow through these vessels given the difficulty in opacification. Angiographically they appeared normal throughout their course and, again, very large vessels. C. Right coronary artery originates from the right coronary cusp. It appears large and normal. D. Aortic blood pressure 163/79 with a mean of 113, left ventricular pressure 162 with a left ventricular end-diastolic pressure of 11. HOSPITAL COURSE: This is a 63-year-old female with a past medical history of end- stage renal disease, on hemodialysis Saturday, Saturday, and Saturday, diabetes, hypertension, obstructive sleep apnea, dyslipidemia, admitted on 12/25/2018. She has been having recurrent chest pain for the past several months. She states that over the past day or so her chest pain has been worsening. She apparently has seen a dormitory counselor who had evaluated her and recommended that the patient should be admitted for possible heart catheterization. At the time of the physical examination upon admission the patient had denied headache, visual changes, fever, chills, nausea, vomiting, diarrhea, hemoptysis, melena, but she was complaining of chest pain and some shortness of breath. The patient was transferred to the medical floor with telemetry. We checked her cardiac workup, EKG. We consulted the dormitory counselor and also Nephrology Department. Given her current symptoms we decided to do a left heart catheterization with selective coronary angiography. We found the left main is short and large, appears normal. The left anterior descending and circumflex vessels origin a from the left main. These vessels were difficult to opacify secondary to them being extremity large. In addition, it seems she has a high amount of flow through these vessels given the difficulty in opacification. Angiographically they appeared normal throughout their course and, again, very large vessels. The right coronary artery originates from the right coronary cusp. It appears large and normal. The aortic blood pressure was around 163/79 with a mean of 113, left ventricular pressure 162, and LVEDP of 11. Cardiology Department recommended blood transfusion due to her significant anemia and discharge home once she is stable. They will arrange to have the cath report faxed to [facility]. She did receive yesterday after the procedure hemodialysis and during that procedure she received 2 units of PRBCs. The hemoglobin improved from 6.8 to 8.3. Today this patient is feeling much better. She is tolerating p.o. She is not complaining of chest pain or shortness of breath. This patient will be discharged with strict follow up by her primary care doctor. Continue with dialysis as scheduled. I will not change her medications. She will continue with the same medications that she was taking at home. PHYSICAL EXAMINATION: Vital signs: Temperature 99 degrees, pulse 67, respiratory rate 18, blood pressure 170/70, oxygen saturation 96 on room air. HEENT: Head normocephalic. No trauma. PERRLA. Neck: Supple. No JVD. No masses. Central trachea. Chest: Some crepitus at the bases. Otherwise, clear to auscultation. No wheezing. No rales. Abdomen: Soft, nontender, nondistended. No hepatosplenomegaly. Extremities: No edema. No clubbing. No cyanosis. Neurological: The patient is alert and oriented x3. No focal deficits. LABORATORY: Hemoglobin 8.3, hematocrit 25.9. Glucose 118. DISCHARGE MEDICATIONS: 1. Vitamin D3 1000 units p.o. daily. 2. Ventolin HFA 2 puff inhaler q.4 hours as needed. 3. Acetaminophen 2 tablets p.o. q.8 hours as needed. 4. Sensipar 30 mg p.o. as directed. 5. Ranitidine 150 mg p.o. b.i.d. 6. Minoxidil 1 tablet p.o. as needed. 7. Diclofenac sodium 1 application on the skin twice a day. 8. Dialyvite tablet 1 tablet p.o. daily. 9. Pravastatin 40 mg p.o. at bedtime. 10. Zofran 4 mg p.o. q.4 hours as needed for nausea and vomiting. 11. Lorazepam 1 mg p.o. as needed for anxiety. 12. Linzess 145 mcg p.o. every other day. 13. Keppra 250 mg p.o. b.i.d. 14. [place] 7.5 half a tablet p.o. p.r.n. for pain. 15. Bentyl 10 mg p.o. q.6 hours. 16. Aspirin 325 mg p.o. daily. 17. Renvela 800 mg p.o. a.c. 18. Losartan hydrochlorothiazide 100/25 mg tablet daily. 19. Levemir 7 units subcutaneous at bedtime. 20. Insulin aspart as directed sliding scale p.r.n. 21. Furosemide 20 mg p.o. daily. 22. Clonidine 0.2 mg p.o. b.i.d. 23. Amlodipine 10 mg p.o. daily. 24. Labetalol 300 mg p.o. b.i.d. 25. The patient was instructed to continue with her home medications, no changes. TIME SPENT: Time discharging this patient, 40 minutes. cc: Bonifacio Francois MD
== END 2018-12-27 15:03 | disposition home health service (06) ==
LOC: ED 15:22 → 3N 15:22 → SUATTDRO 23:59
PROVIDERS: ATTEND Internal Medicine
CPT/HCPCS: 36430; 71020; 71046; 80048; 80053; 81001; 82550; 82948; 83880; 84484; 85014; 85018; 85025; 85610; 85730; 86850; 86900; 86901; 86920; 87088; 93005; 93458; 94761; 99285; A9270; J1170; J1644; J2250; J2405; J7030; J7040; P9016; Q9967; XXXXX

== ENCOUNTER 2019-01-07 11:20 | Inpatient (IN) ==
--- NOTE | 2019-01-07 12:37 | EKG Report ---
Test Performed on : 01/07/2019 11:59:50 AM Test Reason : sob Blood Pressure : / mmHG Vent. Rate : 073 BPM Atrial Rate : 073 BPM P-R Int : 184 ms QRS Dur : 108 ms QT Int : 454 ms P-R-T Axes : 059 031 098 degrees QTc Int : 500 ms Normal sinus rhythm. Possible Left atrial enlargement Left ventricular hypertrophy T wave abnormality, consider lateral ischemia Prolonged QT Abnormal ECG When compared with ECG of 25-DEC-2018 15:32, (Unconfirmed) T wave inversion no longer evident in Inferior leads T wave inversion now evident in Lateral leads Unconfirmed Result
--- NOTE | 2019-01-07 12:48 | Diag Imaging Result Doc PS360 ---
EXAM: CHEST-PORTABLE 01/07/2019 HISTORY: short of breath TECHNIQUE: AP portable at 1236 COMMENT: There is cardiomegaly. The interstitial edema which was present on 12/25/2018 has improved. There is still some atelectasis or fibrosis in the lingula and left lower lobe. IMPRESSION: Cardiomegaly and left-sided atelectasis as described. Electronically signed by Panfilo Rowland 01/07/2019 12:46 PM
[2019-01-07 15:08] LABS: INR 0.94; PROTIME 13.3 Seconds (11.0-16.0)
[2019-01-07 15:09] LABS: PTT 32.4 Seconds (22.3-41.8)
[2019-01-07 15:17] LABS: ALBUMIN 4.5 g/dL (3.5-5.0); CALCIUM 8.6 mg/dL (8.8-10.2); CREATININE 4.1 mg/dL (0.5-0.9); MAGNESIUM 1.9 mg/dL (1.5-2.7); PHOSPHORUS 2.6 mg/dL (2.7-4.5); TOTAL BILIRUBIN 0.25 mg/dL (0.20-1.00); TOTAL PROTEIN 6.7 g/dL (6.3-8.3)
[2019-01-07] MEDS ORDERED: KLOR-CON PO ONE (15:31)
[2019-01-07] MEDS ORDERED: KLOR-CON ONE (15:38)
[2019-01-07 15:51] LABS: BASO# 0.01 X1000 (0.0-0.2); BASO% 0.1 % (0.0-0.8); EOS# 0.19 X1000 (0.0-0.7); EOS% 2.4 % (0.0-10.0); HEMATOCRIT 21.7 % (37.0-47.0); HEMOGLOBIN 6.7 g/dL (12.0-16.0); IMM GRAN# 0.03 X1000 (0.0-0.04); IMM GRAN% 0.4 % (0.0-0.5); LYMPH# 1.74 X1000 (1.2-3.4); LYMPH% 21.6 % (20.5-51.1); MCH 29.9 PG (27-31); MCHC 30.9 g/dL (33-37); MCV 96.9 FL (81-99); MONO# 0.75 X1000 (0.11-0.59); MONO% 9.3 % (1.7-9.3); MPV 9.3 FL (7.4-10.4); NEUT# 5.35 X1000 (1.4-6.5); NEUT% 66.2 % (42.2-75.2); PLT 283 X1000 (130-400); RBC 2.24 XMIL (4.2-5.4); RDW 15.5 % (11.5-14.5); WBC 8.07 X1000 (4.8-10.8)
[2019-01-07] MEDS ORDERED: TYLENOL PO ONE (15:52)
[2019-01-07] MEDS ORDERED: BENADRYL PO ONE (15:52)
--- NOTE | 2019-01-07 15:56 | PROVIDER DOCUMENTATION ---
This chart was entered by Clary Donaldson Scribe, acting as scribe for Cali Sommers MD. HPI-General Adult - General Chief Complaint: Shortness of Breath Stated Complaint: SOB Time Seen by Provider: 01/07/19 12:13 Source: patient Allergies/Adverse Reactions: Patient Allergies Allergy/AdvReac Type Severity Reaction Status Date / Time cephalexin monohydrate * Allergy Severe HALLUCINATI Verified 06/26/18 11:00 [From Keflex] ONS ciprofloxacin [From Cipro] Allergy Severe NAUSEA/VOMI Verified 06/26/18 11:00 TING ciprofloxacin HCl * Allergy Severe NAUSEA/VOMI Verified 06/26/18 11:00 [From Cipro] TING escitalopram oxalate * Allergy Severe Unknown Verified 06/26/18 11:00 [From Lexapro] gabapentin Allergy Severe hallucinati Verified 06/26/18 11:00 ons omeprazole [From Prilosec] Allergy Severe Unknown Verified 06/26/18 11:00 omeprazole magnesium * Allergy Severe Unknown Verified 06/26/18 11:00 [From Prilosec] Penicillins Allergy Severe hallucinati Verified 06/26/18 11:00 ons pneumococcal vaccine Allergy Unknown Unknown Verified 06/26/18 11:00 promethazine HCl * AdvReac Intermediate NAUSEA/VOMI Verified 06/26/18 11:00 [From Phenergan] TING Home Medications: Home Medication List Medication Instructions Recorded Confirmed Last Taken Type PRAVAstatin [Pravachol] 40 mg PO QHS 12/28/15 12/26/18 03/08/18 History Dicyclomine [Bentyl] 10 mg PO Q6HR 06/04/16 12/26/18 03/08/18 History Furosemide [Lasix] 20 mg PO DAILY 07/14/16 12/25/18 03/08/18 History Clonidine [Catapres] 0.2 mg PO BID 03/11/17 12/25/18 03/08/18 History Losartan/Hydrochlorothiazide 1 each PO DAILY 03/11/17 12/25/18 03/08/18 History [Losartan-Hctz 100-25 mg Tab] Ondansetron HCl [Zofran] 4 mg PO Q4H PRN PRN 03/11/17 12/26/18 03/08/18 History Insulin Aspart [Novolog] 0 unit SQ DIRECTED PRN 03/21/17 12/25/18 03/08/18 History Insulin Detemir [Levemir] 7 unit SUBQ HS 03/21/17 12/25/18 03/08/18 History Sevelamer Carbonate [Renvela] 800 mg PO AC 07/30/17 12/25/18 03/08/18 History Aspirin 325 mg PO DAILY 01/06/18 12/26/18 03/08/18 History Hydrocodone/Acetaminophen [[place] 0.5 tab PO PRN PRN 02/25/18 12/26/18 03/08/18 History 7.5-325 Tablet] Amlodipine [Norvasc] 10 mg PO DAILY #30 tab 02/28/18 12/25/18 03/08/18 Rx Lorazepam [Ativan] 1 mg PO PRN PRN 12/25/18 12/26/18 Unknown History Acetaminophen [Tylenol] 2 tab PO Q8H PRN PRN 12/26/18 12/26/18 Unknown History Albuterol Sulfate [Ventolin Hfa] 2 puff INH Q4H PRN PRN 12/26/18 12/26/18 Unknown History Cholecalciferol (Vitamin D3) 1,000 unit PO DAILY 12/26/18 12/26/18 Unknown History [Vitamin D3] Cinacalcet HCl [Sensipar] 30 mg PO DIRECTED 12/26/18 12/26/18 Unknown History Diclofenac Sodium 1 applic TOP BID 12/26/18 12/26/18 Unknown History Folic Acid/Vit B Complex and C 1 tab PO DAILY 12/26/18 12/26/18 Unknown History [Dialyvite Tablet] Levetiracetam 250 mg PO BID 12/26/18 12/26/18 Unknown History Linaclotide [Linzess] 145 mcg PO EVERY OTHER DAY 12/26/18 12/26/18 Unknown History Minoxidil 1 tab PO PRN 12/26/18 12/26/18 Unknown History Ranitidine [Zantac] 150 mg PO BID 12/26/18 12/26/18 Unknown History Labetalol [Trandate] 300 mg PO BID #0 tablet 12/27/18 Unknown Rx - History of Present Illness -Gen Adult Nature of Presenting Problems: 63 yobf presents to the ed per dr finch request. pt sts done her dialysis this morning in [place] and was told to come to ed to be admitted for blood loss and anemia. pt denies chest pain and sts has had decreased appetite and has PICA and only wants to eat [place] dirt Location of Pain/Injury: reports: none Pain Radiation: reports: no radiation Quality of Pain: reports: none Severity: reports: mild Onset/Duration: reports: gradual Timing: reports: still present Context/Activities at Onset: reports: light activity Modifying Factors: improves with: nothing Associated Symptoms: reports: loss of appetite, malaise, other (anemia). denies : back/neck pain, chest pain, diarrhea, fever/chills, nausea, vomiting Similar Symptoms Previously?: Yes Recently seen or treated by another doctor?: Yes (dr finch) Review of Systems - Adult - REVIEW OF SYSTEMS - ADULT Constitutional: denies: chills, fever Eyes: reports: no symptoms reported Ears, Nose, Mouth & Throat: reports: no symptoms reported Cardiovascular: denies: chest pain, palpitations Respiratory: denies: cough, shortness of breath, wheezing Gastrointestinal: reports: see HPI, poor appetite. denies: abdominal pain, diarrhea, nausea, vomiting Genitourinary: reports: no symptoms reported Musculoskeletal: reports: no symptoms reported Integumentary: reports: no symptoms reported Neurological: denies: dizziness/vertigo, headache/migraines Psychiatric: reports: no symptoms reported Endocrine: reports: no symptoms reported Hematologic/Lymphatic: reports: see HPI, low blood count, transfusions Allergic/Immunologic: reports: no symptoms reported All Other Systems: Reviewed and Negative Past History - Adult - PAST MEDICAL HISTORY-ADULT Review of Records: reports: Old Records Reviewed, Nursing Assessment Review, Medications Reviewed, Social history reviewed & non-contributory. Major Childhood Illnesses: reports: denies history Cardiovascular: reports: HTN, murmur Respiratory: reports: asthma, sleep apnea Gastrointestinal: reports: GERD, ulcer Obstetrical/Gynecological: reports: denies history Genitourinary: reports: dialysis (M, W, FRi), ESRD Musculoskeletal: reports: denies history Hand Dominance: Right Handed Neurological: reports: CVA (left sided deficit), stroke deficits, Seizures/ Epilepsy, TIA Psychiatric: reports: denies history Endocrine/Immune: reports: anemia, Diabetes Diabetes Type: Type 2 Other Conditions: reports: denies history - PRIOR SURGERIES/PROCEDURES Surgical/Procedure History: reports: hysterectomy, back/neck, other (left hip replacement) - PRIOR HOSPITALIZATIONS Prior Hospitalizations: reports: none - IMMUNIZATION STATUS Childhood Immunizations: UTD, See Nurse Assessment Flu Vaccine: See Nurse Assessment - FAMILY HISTORY Family History: reviewed, not pertinent - SOCIAL HISTORY Smoking: denies Substance Use: denies Alcohol Use Frequency: never Living Situation: family Physical Exam-General - PHYSICAL EXAM-ADULT Initial Vital Signs Reviewed: Yes - CONSTITUTIONAL General Appearance: alert, no apparent distress, obese - EYES Eyes: PERRL/EOMI, pale conjunctivae - HEAD, EARS, NOSE, MOUTH & THROAT HENMT: moist mucous membranes, normal ENT inspection - NECK Neck: normal inspection - RESPIRATORY Respiratory: chest non-tender, lungs clear, normal breath sounds - CARDIOVASCULAR Cardiovascular: normal peripheral pulses, regular rate, rhythm - GASTROINTESTINAL (ABDOMEN) Abdominal Exam: normal bowel sounds, non tender, soft, other (well healed scar on abdomen) - GENITOURINARY Female Genitalia/Pelvic Exam: deferred Rectal Exam: normal rectal tone, black stool. negative: hemorrhoids Hemoccult Exam: heme positive stool - LYMPHATIC Lymphatic: axilla node tender - MUSCULOSKELETAL Back Exam: normal inspection, no CVA tenderness, no vertebral tenderness Extremity: normal range of motion, non-tender, normal gait, normal inspection, other (dialysis shunt in left upper arm) - SKIN Integumentary: normal color, normal turgor, warm/dry - NEUROLOGIC Neurologic: grossly normal, no motor/sensory deficits - PSYCHIATRIC Psych/Mental Status: normal mood/affect, normal thought content, normal thought process, oriented x 3 Progress - PLAN OF CARE/RESULTS Progress/Plan/Lab Results: Vital Signs - 8 hr 01/07/19 11:58 Temperature 98.1 F Pulse Rate 73 Respiratory Rate 16 Blood Pressure 172/63 O2 Sat by Pulse Oximetry 100 Result Diagrams: 01/07/19 14:40 01/07/19 14:40 - REASSESSMENT Reassessment #1 Time Reassessed: 14:31 (dr sommers at bedside) Status: improving - EKG 1 Time of EKG reading by physician:: 12:00 EKG Read and Signed by:: Cali Sommers EKG Interpretation (*Must complete 3 of following elements*): Abnormal Rate: 73 Rhythm: nsr [place]: normal QRS: LVH, other (possible left atrial enlargment prolonged QT) NC Interval: normal ST Wave: normal Comments: T wave abnormality, consider lateral ischemia - XRAY 1 XRAY: Bilateral XRAY Study: Chest Impression: See EMR Report (EXAM: CHEST-PORTABLE 01/07/2019 HISTORY: short of breath TECHNIQUE: AP portable at 1236 COMMENT: There is cardiomegaly. The interstitial edema which was present on 12/25/2018 has improved. There is still some atelectasis or fibrosis in the lingula and left lower lobe. IMPRESSION: Cardiomegaly and left-sided atelectasis as described. Electronically signed by Panfilo Rowland 01/07/2019 12:46 PM 01/07/19 1246 Interpreting Physician: Panfilo Rowland MD Dictated Date/Time: 01/07/19 1245 cc: Cali Sommers MD; Sean Guerin MD) - CONSULTS/PCP/HOSPITALIST Notification #1 *Consult/PCP/Hospitalist*: dr finch Time Discussed: 08:00 (dr sommers spoke with dr finch about his dialysis pt. he wants pt admitted due to dr josette gipsonves she is losing blood somewhere) Reason/Comments: phone consult #2 Consult: MARY Villanueva Time Discussed: 15:55 (Admit [facility], consult GI) Consult Disposition: Will see in ED #3 Consult: Romeo paged at 0245 Consult Disposition: other (will see) Departure - Departure Date of Disposition Decision: 01/07/19 Time of Disposition Decision: 15:53 DIAGNOSIS: ESRD (end stage renal disease) on dialysis GI bleed Qualifiers: GI bleed type/associated pathology: gastric ulcer Qualified Code(s): K25.4 - Chronic or unspecified gastric ulcer with hemorrhage Anemia Qualifiers: Anemia type: iron deficiency Iron deficiency anemia type: chronic blood loss Qualified Code(s): D50.0 - Iron deficiency anemia secondary to blood loss ( chronic) Disposition: ADMITTED INPATIENT 09 Certified Medical Emergency: Emergent Condition: Fair Referrals and Follow-Ups: Sean Guerin MD [Primary Care Provider] - - Critical Care Note This patient required my direct & personal management of CC.: Yes Total Time (mins): 45 Critical Care Statement: This patient required my direct personal management to treat or rule out processes, the absence of which, could potentiallly result in sudden, clinically significant life or limb threatening deterioration. Attestation - Physician/ ARINA Attestation Patient care was provided by Advanced Practice Provider:: No The physician spent face to face time with patient:: Yes Advanced Practice Provider documentation review:: Supervising physician onsite and consulted in the evaluation and care of this patient. The physician did have a face to face encounter with the patient. This chart was documented by the indicated scribe, (Clary Donaldson Scribe) and accurately reflects the services I performed and decisions made by me, Cali Sommers MD, as attested by the provider's signature.
[2019-01-07] MEDS ORDERED: SODIUM CHLORIDE 0.9% INJ SCH (17:00)
[2019-01-07 17:31] LABS: IRON SATURATION 19 %; TIBC 211 ug/dL; TOTAL IRON 40 ug/dL (49-151); UNBOUND IRON 171 ug/dL (112-346)
[2019-01-07 17:54] LABS: FERRITIN 971 ng/mL (13-150)
--- NOTE | 2019-01-07 18:25 | HISTORY AND PHYSICAL ---
[employer]: Dr. James Donato. PRIMARY CARE PHYSICIAN: Dr. Sean Guerin. CHIEF COMPLAINT: Abnormal hemoglobin and hematocrit. HISTORY OF PRESENT ILLNESS: Ms. Oliva is a 63-year-old female with a history of ESRD on hemodialysis [facility] who dialyzed today, also a history of diabetes mellitus type 2, hypertension, and hyperlipidemia. She presents with some mild shortness of breath, exertional angina and anemia. She had labs checked today during dialysis, and she was found to be anemic, which is a continued and slightly worsening problem (she received 2 units PRBC last admission). She also reports melanic stools and + guiac test recently. She was recently admitted to our service and had a significant cardiac workup including a a heart catheterization done on 12/27/18, which was negative for obstructive coronary lesions. Currently, her hemoglobin and hematocrit are 6.7 and 21.7 respectively. She is slightly hypokalemic but otherwise stable. Her hemodynamics are also stable. 2 units of PRBCs have been ordered for infusion and she will be admitted for further treatment and evaluation. PAST MEDICAL HISTORY: 1. End-stage renal disease on hemodialysis [facility], dialyzed today. 2. Type 2 diabetes. 3. Seizure disorder. 4. Hypertension. 5. Hyperlipidemia. 6. Obstructive sleep apnea. PAST SURGICAL HISTORY: 1. Dialysis graft, left arm. 2. Hip arthroplasty. 3. Hysterectomy. 4. Neck surgery in the past. FAMILY HISTORY: Noncontributory. SOCIAL HISTORY: No tobacco, alcohol or drug use. ALLERGIES: Keflex, Cipro, Neurontin, omeprazole, penicillin. HOME MEDICATIONS: Have not been compiled, but discharge medications from 11 days ago were: 1. Vitamin D3, 1000 units p.o. daily. 2. Ventolin HFA 2 puffs every 4 hours as needed. 3. Acetaminophen every 8 hours as needed. 4. Sensipar 30 mg p.o. as directed. 5. Ranitidine 150 mg p.o. b.i.d. 6. Minoxidil 1 tablet as needed. 7. Diclofenac 1 application to the skin twice a day. 8. Dialyvite 1 p.o. daily. 9. Pravastatin 40 mg at bedtime. 10.Zofran 4 mg every 4 hours as needed. 11.Ativan 1 mg p.o. as needed for anxiety. 12.Linzess 145 mcg every other day. 13.Keppra 250 mg p.o. b.i.d. 14.[place] as needed for pain 15.Bentyl 10 mg every 6 hours. 16.Aspirin 325 mg daily. 17.Renvela 800 mg p.o. before meals. 18.Losartan/hydrochlorothiazide 100/25, 1 daily. 19 Levemir 7 units subcutaneously at bedtime. 20.Aspart as directed p.r.n. 21.Lasix 20 mg daily. 22.Clonidine 0.2 mg p.o. b.i.d. 23.Norvasc 10 mg daily. 24.Labetalol 300 mg p.o. b.i.d. PHYSICAL EXAMINATION: VITAL SIGNS: Blood pressure 174/77, heart rate 74, respiratory rate 18, O2 saturation 96% on room air. GENERAL: Well-developed, well-nourished female lying in the hospital bed in no acute distress. NEUROLOGIC: Awake, alert and oriented. Follows commands. No focal deficits. HEENT: Head is atraumatic, normocephalic. Pupils equal, round, and reactive to light. Oral mucosa are moist. Trachea is midline. No JVD. CHEST: Clear to auscultation bilaterally. CV: Regular rate and rhythm, 3/6 systolic murmur noted. GI: Soft, nondistended, nontender. Bowel sounds positive. EXTREMITIES: Without edema,clubbing or cyanosis. Pulses 1+ bilaterally. DIAGNOSTIC DATA: Chest x-ray shows cardiomegaly, left-sided atelectasis. Hemoglobin 6.7, hematocrit 21.7, platelet count 283. INR 0.94. Sodium 139, potassium 3.0, chloride 99. CO2 is 29, anion gap 11, BUN 12, creatinine 4.1, glucose 76. Calcium 8.6, magnesium 1.9. LFTs within normal limits. ASSESSMENT/PLAN: 1. Gastrointestinal bleed with associated symptomatic anemia: Two units of packed red blood cells have ordered by the emergency room. We will continue to trend her hemoglobin and hematocrit and put her on twice-daily Pepcid, as she is allergic to omeprazole. Will keep her n.p.o. until seen by Gastroenterology. Iron studies have also been ordered. 2. End-stage renal disease, on hemodialysis: Patient hemodialyzed today. Will consult Dr. Donato for end-stage renal disease and assistance with medical management. From a renal standpoint, she is hypokalemic, but otherwise, electrolytes are within acceptable range, as is her acid base balance, and of course, she is anemic. 3. Hypertension. Will continue home medications once reconciled. 4. Seizure disorder, stable. Will continue home medications once reconciled. 5. Diabetes mellitus. Will add pattern sugars, sliding-scale insulin. 6. Deep venous thrombosis prophylaxis with sequential compression devices. 7. Further recommendations to follow. Dictated by MARY Vanegas for Bonifacio Francois MD Patient seen and examined by me face to face, all the laboratory, vitals signs and images were reviewed, patient presented to the emergency department with some shortness of breath mostly with physical activity, this is likely related to her severe anemia, on my physical exam she having some epigastric discomfort, also the patient stated that she has been having black stools, likely she has an upper GI bleed, GI will be consulted as well as nephrology department since she has ESRD, I agree with the [facility] [employer]'s assessment and plan, Bonifacio Gomez MD. cc: MARY Vanegas MD [facility]
[2019-01-07] MEDS: PEPCID IV SCH (18:56)
[2019-01-07] MEDS: NS 500 ML IV SCH (18:57)
[2019-01-07] MEDS: NORVASC PO SCH (21:26)
[2019-01-07] MEDS: ZANTAC PO SCH (21:27)
[2019-01-07] MEDS: TRANDATE PO SCH (21:38)
[2019-01-07] MEDS: CATAPRES PO SCH (21:39)
[2019-01-07] MEDS: KEPPRA PO SCH (21:39)
[2019-01-07] MEDS: PRAVACHOL PO SCH (21:39)
[2019-01-07] MEDS: HUMULIN R SUBQ SCH (23:07)
[2019-01-07 23:39] LABS: HEMATOCRIT 23.4 % (37.0-47.0); HEMOGLOBIN 7.5 g/dL (12.0-16.0)
[2019-01-08 04:56] LABS: HEMOGLOBIN 7.6 g/dL (12.0-16.0); MCH 29.9 PG (27-31); MCHC 31.7 g/dL (33-37); MCV 94.5 FL (81-99); MPV 8.6 FL (7.4-10.4); RBC 2.54 XMIL (4.2-5.4); RDW 16.3 % (11.5-14.5); WBC 6.31 X1000 (4.8-10.8)
[2019-01-08 05:32] LABS: CALCIUM 9.4 mg/dL (8.8-10.2); CREATININE 5.7 mg/dL (0.5-0.9); POTASSIUM 3.8 mmol/L (3.5-5.1)
[2019-01-08] MEDS: HUMULIN R SUBQ SCH ×4 (06:23→21:57)
[2019-01-08] MEDS: VENTOLIN HFA INH PRN ×3 (08:02→23:17)
[2019-01-08] MEDS: LASIX PO SCH (08:48)
[2019-01-08] MEDS: NEPHRO-VITE PO SCH (08:48)
[2019-01-08] MEDS: CATAPRES PO SCH ×2 (08:48→23:31)
[2019-01-08] MEDS: NORVASC PO SCH (08:48)
[2019-01-08] MEDS: KEPPRA PO SCH ×2 (08:48→23:31)
[2019-01-08] MEDS: ZANTAC PO SCH ×2 (08:48→23:31)
[2019-01-08] MEDS: HYZAAR 50/12.5 MG PO SCH (08:48)
[2019-01-08] MEDS: RENAGEL PO SCH ×3 (08:48→16:56)
[2019-01-08] MEDS: TRANDATE PO SCH ×2 (08:48→23:31)
[2019-01-08] MEDS: PEPCID IV SCH ×2 (08:51→23:32)
--- NOTE | 2019-01-08 11:20 | PROGRESS NOTE ---
DATE: 01/08/2019 SUBJECTIVE: This patient is feeling a little bit better compared with yesterday. She is not complaining of chest pain or shortness of breath today. Gastroenterology Department has evaluated the patient, and probably she will go for an endoscopy today. OBJECTIVE: Vital Signs: Temperature 98.6 degrees, pulse 67, respiratory rate 14, blood pressure 168/68, and oxygen saturation 98 percent on room air. HEENT: Head normocephalic. No trauma. PERRLA. Neck: Supple. No JVD. No masses. Central trachea. Chest: Clear to auscultation. No wheezing. No rales. Abdomen: Soft, nontender, and nondistended. No hepatosplenomegaly. Extremities: No edema. No clubbing. No cyanosis. Neurological: The patient is alert and oriented x3. No focal deficits. LABORATORY: WBC 6.3, hemoglobin 7.6, hematocrit 24, and platelets 229,000. Sodium 139, potassium 3.8, chloride 102, bicarbonate 30, BUN 17, creatinine 5.7, glucose 109, calcium 9.4 and troponin 0.24 which is chronic. ASSESSMENT AND PLAN: 1. Gastrointestinal bleed with associated symptomatic anemia. This patient received 2 units of PRBC's. Hemoglobin and hematocrit improved a little bit compared with yesterday. Gastroenterology Department evaluated this patient, and they will try to do an endoscopy today. 2. End-stage renal disease on hemodialysis. Nephrology Department has been consulted. We will continue with dialysis during this hospitalization. 3. Hypertension stable. 4. Seizure disorder stable. We will continue home medication. 5. Type 2 diabetes. Continue with pattern of blood sugar and sliding scale insulin. 6. Deep vein thrombosis prophylaxis with SCD's. cc: Bonifacio Francois MD
[2019-01-08] MEDS: NS 500 ML IV SCH (11:37)
[2019-01-08] MEDS ORDERED: XYLOCAINE-MPF 2% ONE (13:32)
[2019-01-08] MEDS ORDERED: AMIDATE ONE (13:32)
--- NOTE | 2019-01-08 14:40 | NEPHROLOGY CONSULTATION ---
DATE: 01/08/2019 DATE OF CONSULT: 01/08/2019. REASON FOR ADMISSION: Abnormal hemoglobin and hematocrit. REASON FOR CONSULT: End-stage renal disease with assistance with medical management. CONSULTING PHYSICIAN: Dr. Bonifacio [place]. HISTORY OF PRESENT ILLNESS: Ms. Oliva is a 63-year-old female who is known to our outpatient services for hemodialysis on Saturday, Saturday, Saturday at the [facility]. The patient had been complaining of weakness. We have been checking her hemoglobin and hematocrit on an outpatient basis. Yesterday morning we were notified that her hemoglobin stat was 6.7 with a hematocrit of 21.7, respectively. The patient was advised after her dialysis treatment to come to [facility] for further evaluation and workup. She was subsequently admitted. GI has been consulted. She received 2 units of packed red blood cells. Tolerated this well during the night. She does state that occasionally she has chest pain, more midsternal, nonradiating. She has no association of nausea, vomiting or radiation with this chest pain. She states it does feel better after she gets extra fluid off on dialysis. Currently, the patient has no complaints. She states that she is feeling just a little bit better. No abdominal discomfort. No increased work of breathing. PAST MEDICAL HISTORY: End-stage renal disease with hemodialysis on Saturday, Saturday, Saturday; hypertension; diabetes mellitus type 2; history of seizure disorder; hyperlipidemia; obstructive sleep order; anemia of chronic disease;, osteodystrophy of chronic disease. PAST SURGICAL HISTORY: The patient has a dialysis fistula left upper arm, hip arthroplasty, hysterectomy, neck surgery in the past. FAMILY HISTORY: Negative for acute kidney injury or chronic kidney disease, though positive for diabetes and hypertension. SOCIAL HISTORY: Denies tobacco, alcohol or illicit drug use. She lives with her family. ALLERGIES: Listed as Keflex, Cipro, Neurontin, omeprazole and penicillin. HOME MEDICATIONS: Have been reviewed. Vitamin D3, Ventolin HFA, acetaminophen , Sensipar, ranitidine, minoxidil, diclofenac, [place], pravastatin, Zofran, Ativan, Linzess, Keppra, [place], Bentyl, aspirin, Renvela, losartan, hydrochlorothiazide, Levemir, Lasix, clonidine, Norvasc and labetalol. REVIEW OF SYSTEMS: Times 10 with pertinent positives listed above in the HPI. VITAL SIGNS: The patient's most recent vital signs: Temperature 98.3 degrees, blood pressure 164/68, heart rate 70, respirations are 16. She is on room air. Last recorded saturation is 97% she has had 1050 in. The patient received her dialysis treatment prior to coming in. She said they removed just short less of 1 L. LABS: Her sodium is 139, potassium 3.8, chloride 102, CO2 30, BUN 17, creatinine 5.7, glucose 109. Her anion gap is 7. Calcium is 9.4. She has an albumin of 4.5, phosphorus on admission was down to 2.6. White count 6.3, hemoglobin is up to 7.6, hematocrit 24, platelet count 229,000. The patient had an anemia study indicating her iron level of 40, iron percent sat of 19%, unsaturated iron binding is 171, her ferritin is 971, B12 744, with a folate of 9.8. PHYSICAL EXAMINATION: General: This is a 63-year-old female resting quietly in bed. She appears chronically ill, but no acute distress. Skin: Warm and dry. HEENT: Normocephalic, atraumatic. Conjunctiva is pale. She has ZAC. Mucous membranes are dry. Neck: Supple. Trachea midline. No evidence of JVD. Cardiovascular: She is regular rate and rhythm. She has a systolic murmur. Lungs: Clear to auscultation bilaterally. Equal excursion. She is on room air. Abdomen: No tenderness noted. Genitourinary: Not inspected. Minimal void with dialysis assist. Extremities: Have a left upper arm fistula with palpable thrill. No lower extremity edema. ASSESSMENT AND PLAN: 1. Chronic kidney disease stage 5D. The patient is due for her routine dialysis treatment in the a.m. No indications for intervention today. 2. Electrolytes, acid-base balance and anemia. These are all acceptable. 3. GI bleed. Patient's hemoglobin is up to the 7 range after 2 units of packed red blood cells. She is scheduled for followup with Dr. Reyes this a.m. for possible plans for colonoscopy or an EGD or both. 4. Seizure disorder patient is continued on her home medications. I would like to thank you for allowing us to follow with this patient. Dictated by MARY Pina for James Donato MD Face to face encounter, data reviewed, discussed with Gladys Roach on 01/08/19. I agree with the above assessment and plan of care. cc: MARY Pina MD [facility]
--- NOTE | 2019-01-08 15:23 | OPERATIVE NOTE ---
PROCEDURE DATE: 01/08/2019 PROCEDURE: Esophagogastroduodenoscopy (EGD). PREOPERATIVE DIAGNOSES: 1. Anemia. 2. Acute gastrointestinal (GI) bleed. POSTOPERATIVE DIAGNOSIS: Normal esophagogastroduodenoscopy (EGD). HISTORY: This is a 63-year-old female, admitted to hospital after she had what she termed as dark emesis, and she was found to be significantly anemic. There was question of possible melenic stool and heme-positive stool. EGD was done to rule out upper GI pathology resulting in her anemia. PROCEDURE IN DETAIL: Informed consent was obtained from the patient. The procedure, risks, benefits, and alternatives were explained in layman's terms. She understood. All the pertinent questions were answered. The patient was brought to the endoscopy unit and was premedicated as per Anesthesia. After adequate sedation, while she was lying in the left lateral position, the gastroscope was introduced into the posterior pharynx and advanced under direct vision into the esophagus. Esophagus in its entire length appeared to be normal. No esophagitis, webs, rings, varices were seen. The scope was then passed through the esophagus into the stomach. Stomach was examined both in straight and retroflexed view, which revealed normal cardia, fundus, body, and antrum. Scope was then passed through the normal pylorus into the duodenal bulb, and then the 2nd portion of duodenum, which appeared to be normal except for prominent major papilla. The scope was then withdrawn. Patient tolerated the procedure with no complications noted. Patient was then transferred to the recovery area in a stable condition. IMPRESSION: Anemia with normal esophagogastroduodenoscopy (EGD). RECOMMENDATION: She has had a colonoscopy earlier. I do not think we need to repeat that, but she does need a small-bowel follow-through to rule out small-bowel pathology resulting in her anemia. I have explained the findings and plan to the patient's family members. They understood. All of their pertinent questions were answered. cc: Julio Reyes MD
--- NOTE | 2019-01-08 15:32 | CONSULTATION ---
DATE OF CONSULTATION: 01/08/2019 CONSULTING PHYSICIAN: Dr. Hamilton. REASON FOR CONSULTATION: GI bleed and anemia. HISTORY: This is a 63-year-old female with multiple medical problems including diabetes and renal failure. She is currently on dialysis. She was seen at the dialysis yesterday and was found to be anemic. Her hemoglobin and hematocrit was 6.7 and 21.7. She was advised to come to the emergency room for where she was admitted to the hospital for further evaluation and treatment. Patient tells me that she has had heme-positive stool as well. She has been complaining of pica and has been eating a lot of red everett. When she has stool, it was dark in color. She apparently has had some "spitting" and had some dark colored emesis too, but she has not had any hematemesis per se, and has not noticed any bright red blood per rectum. She has been very weak and lethargic, and has had shortness of breath on exertion. However, she denies any chest pain. She tells me that she has been nauseated and has had very poor appetite. The mere smell of food makes her nauseated, and she does not eat. She has lost a significant amount of weight. She denies any dysphagia or odynophagia. She has not had any indigestion or heartburn. She complains of constipation, and has to take medication to help her bowel movements. PAST MEDICAL HISTORY: Significant for hypertension, hyperlipidemia, diabetes type 2, seizure disorder, end-stage renal disease on dialysis, and history of COPD. PAST SURGICAL HISTORY: She has had hysterectomy. Hip arthroplasty, and has had dialysis graft put in left arm. She also has had some neck surgery too. MEDICATIONS: In the hospital now, she has been on Zantac, Jere-A Gel, Pravachol, Nephro-[place], Keppra, Trandate, Humulin R, Hyzaar, Lasix, Pepcid, Catapres, Sensipar, Norvasc and Ventolin HFA. ALLERGIES: She claims to be allergic to Cipro, Lexapro, gabapentin, Prilosec, and omeprazole which causes her some unknown allergies. Pneumococcal vaccine and Phenergan. SOCIAL HISTORY: Patient lives by herself. She does not smoke. Does not drink. Does illicit drugs. FAMILY HISTORY: Noncontributory. REVIEW OF SYSTEMS: As per HPI as above. PHYSICAL EXAMINATION: General: On examination, very pleasant female. She is lying in bed. She is conscious, alert, and appears to be in no distress. Vital Signs: Temperature is 98.6 degrees, pulse 72 per minute, blood pressure 168/68. She has breathing rate of 16. She is 5 feet 9 inches tall. She is 196 pounds. HEENT: Head is atraumatic, normocephalic. Eyes: Conjunctivae is pale. Sclerae anicteric. Nares are patent. No discharge. Mouth: Buccal mucosa is moist. Throat is normal. Neck: Neck is supple. No lymphadenopathy or thyromegaly. Chest: Bilaterally symmetrical. It is moving with respirations. Breath sounds audible bilaterally. No rhonchi or crepitus could be heard. Heart: Audible. No murmur could be appreciated. Abdomen: Full, soft, and mildly tender in epigastric area but no rebound tenderness. No guarding noted. Bowel sounds are audible. Extremities: No pedal edema, cyanosis, or clubbing was noted. FORE[employer] F[employer]: Grossly intact. No sensory or motor deficit. LABORATORIES: Reviewed yesterday in the hospital, WBC 8.07, hemoglobin 7.5, hematocrit 23.4, MCV 96.9, and platelets were 283,000. PT 13.3, INR 0.94, PTT 32.4. Sodium 139, potassium 3.0, chloride 99, bicarb 29, BUN is 12, creatinine is 4.1, and glucose 189. Transaminases were normal. She had low iron 40. Iron saturation was 19%. IMPRESSION: This is a 63-year-old female who has presented with anemia. Her initial hemoglobin and hematocrit drawn at Dr. Donato's office for dialysis center was 6.7 and 21.7. She was symptomatic. She has received 2 units of blood there, and that brought her hemoglobin and hematocrit up to 7.5 and 23.4. She had Hemoccult done on her stool which was positive. It needs further evaluation because of dark stool, anemia and heme-positive stool. She will be scheduled for EGD and to rule out upper GI pathology resulting in her anemia. Depending on the findings, further plans are made. In the meantime, I agree with the H2 receptor antagonist since she is allergic to PPI. Advised to recheck hemoglobin and hematocrit, transfuse if necessary. Further plans made according to the EGD. I have explained the findings and plan with the patient. She understands and agrees. She will be scheduled as soon as possible. In the meantime, continue rest of medical treatment as per team and for nephrology department. cc: Julio Reyes MD
[2019-01-08] MEDS ORDERED: ATIVAN PO ONE (22:50)
[2019-01-08] MEDS: PRAVACHOL PO SCH (23:31)
[2019-01-09] MEDS: NS 500 ML IV SCH (05:37)
[2019-01-09] MEDS ORDERED: NS 2,000 ML MISC PRN (05:44)
[2019-01-09] MEDS ORDERED: HEPARIN IV PRN (05:44)
[2019-01-09] MEDS ORDERED: TIGHT: 0.2 ML/HR FOR DIALYSIS MISC PRN (05:44)
[2019-01-09] MEDS: HUMULIN R SUBQ SCH ×4 (06:31→21:43)
[2019-01-09] MEDS: RENAGEL PO SCH ×3 (07:24→17:09)
[2019-01-09 07:41] LABS: HEMATOCRIT 23.9 % (37.0-47.0); HEMOGLOBIN 7.6 g/dL (12.0-16.0); MCH 30.5 PG (27-31); MCHC 31.8 g/dL (33-37); MPV 9.3 FL (7.4-10.4); RBC 2.49 XMIL (4.2-5.4); WBC 6.67 X1000 (4.8-10.8)
[2019-01-09 07:52] LABS: CREATININE 8.1 mg/dL (0.5-0.9); POTASSIUM 4.3 mmol/L (3.5-5.1)
[2019-01-09] MEDS ORDERED: SENSIPAR PO SCH (09:00)
[2019-01-09] MEDS: CATAPRES PO SCH ×2 (11:31→21:36)
[2019-01-09] MEDS: HYZAAR 50/12.5 MG PO SCH (11:31)
[2019-01-09] MEDS: KEPPRA PO SCH ×2 (11:31→21:36)
[2019-01-09] MEDS: LASIX PO SCH (11:31)
[2019-01-09] MEDS: NEPHRO-VITE PO SCH (11:32)
[2019-01-09] MEDS: NORVASC PO SCH (11:32)
[2019-01-09] MEDS: TRANDATE PO SCH ×2 (11:32→21:39)
[2019-01-09] MEDS: ZANTAC PO SCH ×2 (11:33→21:36)
[2019-01-09] MEDS: PEPCID IV SCH ×2 (12:00→21:34)
--- NOTE | 2019-01-09 12:38 | NEPHROLOGY PROGRESS NOTE ---
DATE: 01/09/2019 SUBJECTIVE: She has no new symptoms today. She underwent upper endoscopy yesterday and had no new finding. She has questions about the plan moving forward. PHYSICAL EXAMINATION: Vital Signs: Blood pressure 174/79, heart rate 66, respirations 16, afebrile. General: No acute distress. Skin: Warm and dry. HEENT: Conjunctivae are pink. Neck: Neck veins are not distended. Heart: Regular with systolic murmur at the base. Lungs: Equal breath sounds. No crackles. Abdomen: Soft, nontender. Bowel sounds present. Extremities: No edema, clubbing, or cyanosis. IMPRESSION: 1. Anemia with gastrointestinal bleeding. She has a small bowel follow-through planned for today. She will likely need a capsule endoscopy. Will defer further evaluation to Dr. Reyes, but we will give 1 unit of packed red blood cells during her treatment today. 2. Chronic kidney disease 5D. She will have her routine dialysis today, as prescribed. Electrolytes and acid-base are in target. Blood pressure is ranging between 130 and 175 systolic. No changes at this time. cc: James Donato MD
--- NOTE | 2019-01-09 12:52 | Diag Imaging Result Doc PS360 ---
EXAM: SMALL BOWEL SERIES ONLY HISTORY: R/O small bowel pathology TECHNIQUE: Small bowel series COMPARISON: None. FINDINGS: Oral contrast distended the the stomach with normal emptying into the small bowel. The small bowel loops are not dilated. No mass or obstruction. Normal mucosal pattern. Transit into the colon occurs between two and three hours. IMPRESSION: No abnormality identified. Electronically signed by Marcelino Hale 01/09/2019 12:49 PM
--- NOTE | 2019-01-09 13:49 | PROGRESS NOTE ---
DATE: 01/09/2019 SUBJECTIVE: Patient was seen in the dialysis unit. She currently denies complaints. She had an EGD on 01/08/2019. Indications for anemia. Findings showed normal EGD. She had a small bowel follow-through this morning. Findings showed no abnormalities. She had a colonoscopy by Dr. Perdomo in December of 2017 that showed sigmoid diverticulosis, nonbleeding AVM in the rectosigmoid colon, and hemorrhoids along with poor bowel prep. Patient denies current complaints at the present time. OBJECTIVE: Vital Signs: Temperature 97.8 degrees, pulse 66, respirations 16, and blood pressure 185/74. General: Patient is awake and alert in no acute distress generally. Respiratory: Lung sounds are essentially clear. Abdomen: Soft, nontender. Positive bowel sounds. LABORATORY: Hematology WBC 6.67, hemoglobin 7.6, hematocrit 23.9, MCV 96, and platelets 216,000. Chemistry: Sodium 135, potassium 4.3, chloride 98, CO2 of 23, BUN 30, creatinine 8.1, and glucose 93. Calcium 8.6, phosphorus 2.6, and magnesium 1.9. Iron 40. TIBC 211 percent saturation 19. Ferritin 971. Total bilirubin 0.25. AST 11, ALT 10, alkaline phosphatase 80. ASSESSMENT AND PLAN: 1. Anemia. Continue to monitor hemoglobin and hematocrit. Transfuse further packed red blood cells as needed. 2. Chronic kidney disease on dialysis. PLAN: We will continue to follow along during the hospital course. Small- bowel follow-through was normal. EGD was normal. She had a colonoscopy in December [address] Perdomo with findings of sigmoid diverticulosis, nonbleeding AVM in the rectosigmoid colon and hemorrhoids with poor bowel prep. We will continue to follow during her hospital course. Recommend she follow up with us as an outpatient. She may need further evaluation. I have discussed this case with Dr. Reyes. Dictated by MARY Saleh for Julio Reyes MD cc: MARY Prabhakar MD [facility]
[2019-01-09] MEDS ORDERED: DUONEB (A & A) INH PRN (15:17)
[2019-01-09] MEDS ORDERED: DUONEB (A & A) INH SCH (15:30)
--- NOTE | 2019-01-09 16:21 | PROGRESS NOTE ---
DATE: 01/09/2019 SUBJECTIVE: This patient is feeling better today. Hemoglobin and hematocrit have been stable. She will receive 1 unit of blood today during dialysis. EGD did not show any active bleeding and small bowel follow through was normal. I will re-evaluate this patient in the morning and if she is stable I will send her home. OBJECTIVE: Vital Signs: Temperature 97.8, pulse 66, respiratory rate 16, blood pressure 185/74, oxygen saturation 99% on room air. HEENT: Head normocephalic. No trauma. PERRLA. Neck: Supple. No JVD. No masses. Central trachea. Chest: Clear to auscultation. No wheezing. No rales. Abdomen: Soft, nontender, nondistended. No hepatosplenomegaly. Extremities: No edema. No clubbing. No cyanosis. Neurologic: The patient is alert and oriented x 3. No focal deficits. LABORATORY: WBC 6.6, hemoglobin 7.6, hematocrit 23.9, platelets 216,000. Sodium 135, potassium 4.3, chloride 98, bicarbonate 23, BUN 30, creatinine 8.1, glucose 93, calcium 9. ASSESSMENT AND PLAN: 1. Gastrointestinal bleed with associated symptomatic anemia. She received a couple units of PRBCs previously and now she will get another PRBC during dialysis. Hemoglobin and hematocrit has been stable compared with yesterday. EGD did not show any active bleed and the small bowel follow through is normal. Will monitor for now. 2. End-stage renal disease, on hemodialysis. Continue as scheduled. She is getting dialysis today. 3. Hypertension. Blood pressure has been elevated. I will wait to complete dialysis to see how she does. 4. Seizure disorder, stable. Continue home medication. 5. Type 2 diabetes. Continue with pattern of blood sugar and sliding scale insulin. 6. DVT prophylaxis with SCDs. cc: Bonifacio Francois MD
[2019-01-09] MEDS ORDERED: NORCO-7.5 PO PRN (17:32)
[2019-01-09] MEDS: PRAVACHOL PO SCH (21:35)
[2019-01-09] MEDS ORDERED: ATIVAN PO ONE (23:32)
[2019-01-10] MEDS: NS 500 ML IV SCH (02:47)
[2019-01-10] MEDS: HUMULIN R SUBQ SCH ×2 (06:14→10:59)
[2019-01-10] MEDS: RENAGEL PO SCH ×2 (06:15→12:35)
[2019-01-10 07:32] VITALS: BP 177/69
[2019-01-10 07:41] LABS: HEMATOCRIT 27.8 % (37.0-47.0); HEMOGLOBIN 8.9 g/dL (12.0-16.0); MCH 30.5 PG (27-31); MCV 95.2 FL (81-99); MPV 9.4 FL (7.4-10.4); RBC 2.92 XMIL (4.2-5.4); RDW 15.8 % (11.5-14.5); WBC 6.81 X1000 (4.8-10.8)
[2019-01-10] MEDS: NEPHRO-VITE PO SCH (08:06)
[2019-01-10] MEDS: ZANTAC PO SCH (08:06)
[2019-01-10] MEDS: TRANDATE PO SCH (08:06)
[2019-01-10] MEDS: NORVASC PO SCH (08:07)
[2019-01-10] MEDS: KEPPRA PO SCH (08:07)
[2019-01-10] MEDS: CATAPRES PO SCH (08:07)
[2019-01-10] MEDS: PEPCID IV SCH ×2 (08:07→10:55)
[2019-01-10] MEDS: LASIX PO SCH (08:07)
[2019-01-10 08:08] LABS: POTASSIUM 3.9 mmol/L (3.5-5.1)
[2019-01-10] MEDS: HYZAAR 50/12.5 MG PO SCH (08:09)
[2019-01-10 08:11] LABS: CREATININE 5.7 mg/dL (0.5-0.9)
[2019-01-10] MEDS ORDERED: LINZESS PO SCH (09:00)
--- NOTE | 2019-01-10 22:50 | DISCHARGE SUMMARY ---
ADMISSION DATE: 01/07/2019 DISCHARGE DATE: 01/10/2019 DISCHARGE DIAGNOSES: 1. Gastrointestinal bleed with associated symptomatic anemia. 2. End-stage renal disease on hemodialysis. 3. Hypertension. 4. Seizure disorder. 5. Type 2 diabetes. HOSPITAL COURSE: A 63-year-old female with a past medical history of end-stage renal disease on hemodialysis Saturday, Saturday, and Saturday, dialyzed the same day of admission on 01/07/2019, history also of diabetes, hypertension, hyperlipidemia presented to the emergency department with shortness of breath and anemia. She had lab checked today during dialysis and she was found to be anemic which is continued and slightly worsening problem, she received 2 units of PRBCs on the last admission and she reported also some melena and her occult blood in the stool is positive. She was recently admitted to our service and had significant cardiac workup including a heart catheterization on 12/27/2018 which was negative for acute coronary syndrome, upon presentation this time her hemoglobin and hematocrit were 6.7 and 21.7 respectively, she was slightly hypokalemic otherwise stable, she receive initially 2 units of PRBCs, nephrology department was consulted and they initiated hemodialysis as scheduled. Also gastroenterology department was consulted and they did an upper endoscopy that basically showed a normal EGD, they recommended a small bowel followthrough which also was normal to rule out any small bowel pathology then this patient received another unit of blood during dialysis again because the hemoglobin was 7.6 but she was asymptomatic at this time, today her hemoglobin is 8.9. She had a bowel movement that was not melena, it was more greenish which is apparently a little bit more normal for her, I had an extensive conversation with the patient and 1 of the family members about her kidney dysfunction also can be related to her anemia, I explained to them that it is common to have patient with hemodialysis and anemia receiving some blood transfusion. At the moment of discharge this patient was on a stable medical condition, tolerating p.o. and ambulating. VITAL SIGNS: Temperature 98.7, pulse 62, respiratory rate 16, blood pressure 177/69, oxygen saturation 98 on room air. HEENT: Head normocephalic. No trauma. PERRLA. Neck: Supple. No JVD. No masses. Central trachea. Chest: Clear to auscultation. No wheezing, no rales. Abdomen: Soft, nontender, nondistended. No hepatosplenomegaly. Extremities: No edema, no clubbing, no cyanosis. Neurological: The patient is alert and oriented x3. No focal deficits. LABORATORY: WBC 6.8, hemoglobin 8.9, hematocrit 27.8, platelets 206,000, sodium 139, potassium 3.9, chloride 99, bicarbonate 27, BUN 19, creatinine 5.7, glucose 95, calcium 9. DISCHARGE MEDICATION: This patient will continue with her home medications except aspirin and NSAIDs, the aspirin can be restarted once the training and development project leader or primary care doctor evaluated the patient. Medications. Sevelamer 800 mg p.o. a.c., ranitidine 150 mg p.o. b.i.d., pravastatin 40 mg p.o. at bedtime, Zofran 4 mg p.o. q.4 hours as needed, losartan hydrochlorothiazide 1 tablet p.o. daily 100/25 mg p.o. tablets, Ativan 1 mg p.o. p.r.n. anxiety, Linzess 145 mcg p.o. every other day, levetiracetam 250 mg p.o. b.i.d., labetalol 300 mg p.o. b.i.d., Levemir 7 units subcu at bedtime. [place] 7.5 one tablet p.o. daily as needed, furosemide 20 mg p.o. daily, Dialyvite tablet 1 tablet p.o. daily, Bentyl 10 mg p.o. q.6 hours, clonidine 0.2 mg p.o. b.i.d., Sensipar 30 mg p.o. as directed, vitamin D3 1000 units p.o. daily, aspirin 325 mg p.o. daily this has been held, amlodipine 10 mg p.o. daily, Ventolin HFA 2 puff inhaler q.4 hours as needed and acetaminophen 325 mg tablet 2 tablets p.o. q.8 hours as needed. TIME SPENT: 35 minutes. All their questions were answered. cc: Bonifacio Francois MD
== END 2019-01-10 12:55 | disposition home health service (06) | DRG 377 ==
LOC: ED 11:20 → 3N 17:47
PROVIDERS: ATTEND Internal Medicine
CPT/HCPCS: 36430; 71010; 71045; 74250; 80048; 80053; 82270; 82550; 82607; 82728; 82746; 82948; 83540; 83550; 83735; 84100; 84484; 85014; 85018; 85025; 85027; 85610; 85730; 86850; 86900; 86901; 86920; 93005; 94640; 94761; 99285; A9270; J1644; J7030; J7040; P9016; S0028; XXXXX